=== PATIENT | female | born 1945 | race Caucasian/White ===

== ENCOUNTER → 2019-08-09 11:19 | Outpatient (BNVA) | payer MEDICARE, OTHER, SELFPAY | PROVIDERS: Family Provider Family Medicine; PCP Family Medicine; Visit Provider Family Medicine | DX: E11.9 Type 2 diabetes mellitus without complications (principal); I10 Essential (primary) hypertension; Z79.4 Long term (current) use of insulin; E78.2 Mixed hyperlipidemia | CPT/HCPCS: 80053; 80061; 83036; 84443; 85025 ==

== ENCOUNTER → 2019-08-27 10:00 | Outpatient (BNVA) | payer MEDICARE, OTHER, SELFPAY | PROVIDERS: Family Provider Family Medicine; PCP Family Medicine; Visit Provider Family Medicine | DX: E03.9 Hypothyroidism, unspecified (principal) | CPT/HCPCS: 84439; 84443 ==

== ENCOUNTER 2019-08-30 13:15 | Outpatient (CLI) | payer MEDICARE, OTHER, SELFPAY ==
--- NOTE | 2019-08-30 13:35 | XR_ITS ---
WS: [id number] SACRUM AND COCCYX TECHNIQUE: AP angled and lateral views. HISTORY: pain, fall. COMPARISON: None available. No fracture or malalignment. Visualized bony structures are unremarkable. No soft tissue abnormality. XR/XR sacrum coccyx min 2V [id number] IMPRESSION: Negative sacrum and coccyx.
== END 2019-08-30 13:16 | disposition home or self-care (01) ==
LOC: RADWPI 13:25
PROVIDERS: Family Provider Family Medicine; PCP Family Medicine; Visit Provider Family Medicine
DX: M53.3 Sacrococcygeal disorders, not elsewhere classified (principal); W19.XXXA Unspecified fall, initial encounter
CPT/HCPCS: 72220

== ENCOUNTER → 2019-11-14 14:20 | Outpatient (BNVA) | payer MEDICARE, OTHER, SELFPAY | PROVIDERS: Family Provider Family Medicine; PCP Family Medicine; Visit Provider Nurse Practitioner Family | DX: R50.9 Fever, unspecified (principal); R53.81 Other malaise; R53.83 Other fatigue; J06.9 Acute upper respiratory infection, unspecified; Z20.828 Contact with and (suspected) exposure to other viral communicable diseases | CPT/HCPCS: 87635 ==

== ENCOUNTER 2019-11-20 15:10 | Observation (INO) | payer MEDICARE, OTHER, SELFPAY ==
[2019-11-20] VITALS (7 sets, daily range): BP systolic 121–214; BP diastolic 64–101; PULSE 65–79; RESP 14–20; TEMP 36.8–36.9; O2SAT 92–99; BMI 34.9
--- NOTE | 2019-11-20 15:43 | ECG_ITS ---
[facility] Test Date: 2019-11-20 Pat Name: Dee Solares Department: Room: Gender: Female Educational Audiologist: : 1945 Requested By: Yenni Bustillo Order Number: [id number] Jennifer MD: Renate Mckeon M.D. Measurements Intervals [place] Rate: 68 P: 58 NE: 193 QRS: 25 QRSD: 90 T: 44 QT: 423 QTc: 452 Interpretive Statements SINUS RHYTHM WITH MARKED SINUS ARRHYTHMIA No previous ECG available for comparison Electronically Signed On 11-20-2019 17:28:32 CDT by Renate Mckeon M.D. [id number] f
--- NOTE | 2019-11-20 15:43 | ED_ITS ---
HPI - General Adult General: Chief complaint: General Medical Stated complaint: WEAK, COVID POSITIVE 11-14 Time Seen by Provider: 11/20/19 15:14 History of Present Illness: HPI narrative: This patient is a 74-year-old female who presents today with known COVID. She became symptomatic around November 11. Her first symptoms were headache and fever as well as a very persistent cough. She was tested here on November 13 and received a positive result on the . She has been isolating at home. Her was admitted yesterday with COVID. Also a number of her friends are also ill or admitted with COVID. She says that she has been doing okay other than feeling poorly with the cough, fever, headaches. She was trying to take care of her sick until yesterday and so had not gotten a lot of rest. Today she started having copious amounts of diarrhea and became lightheaded and near syncopal. After she almost passed out and was feeling extremely short of breath she decided to call the ambulance. She is feeling very weak and was afraid that she might pass out at home and no one would find her. She is tachypneic and subjectively short of breath. Her O2 sat on room air just laying in the bed was 94 to 95%. She subjectively felt better with 2 L of nasal cannula oxygen. She is a diabetic and also has a history of mitral valve regurgitation. Her PCP is Dr. Alarcon in [place] and she sees Dr. Marie for her heart. Associated symptoms: Reports dyspnea, headache(s), malaise and nausea; Deny chest pain, rash or vomiting Review of Systems General: Reports: 10 or more systems reviewed and unremarkable except in HPI and below Const: Reports: fever(s), chills, fatigue and malaise Eyes: Denies: change in vision ENMT: Denies: odynophagia Card: Reports: pre-syncope and dyspnea on exertion; Denies: chest pain or swelling of feet/ankles Resp: Reports: dyspnea and non-productive cough; Denies: productive cough GI: Reports: nausea and diarrhea; Denies: abdominal pain or vomiting : Denies: flank pain or difficulty voiding Musc: Reports: back pain; Denies: neck pain Skin/Breast: Denies: rash Neuro: Reports: headache(s), difficulty walking and dizziness; Denies: numbness in extremities or weakness in extremities Bang/Lymph: Denies: easy bruising or easy bleeding PFSH ED PFSH: Medical History (Updated 11/21/19 @ 07:59 by Dony Alvarado MD) Atypical chest pain Benign essential HTN Deafness in left ear Depression Dyslipidemia Fibromyalgia GERD (gastroesophageal reflux disease) Hyperlipidemia Hypertension Intracranial tumor Mitral regurgitation Osteoarthritis Surgical History (Updated 11/21/19 @ 07:54 by Dony Alvarado MD) Previous back surgery Family History (Updated 11/21/19 @ 07:56 by Dony Alvarado MD) Mother Cancer Colon cancer, involving appendix Father CAD (coronary artery disease) Sister Cancer Colon cancer Brother Cancer Colon cancer Other No family history of disorders Social History Smoking and tobacco status: former smoker Quit status (tobacco): has quit using tobacco Year quit tobacco: 1996 Alcohol intake: never Physical Exam Const: COMMON NORMALS: patient oriented x3, no limitations and alert GENERAL APPEARANCE: cooperative HENMT: HEAD & SCALP: normal to inspection FACE & SINUS: normal facial exam Eye: GENERAL EYE: appearance normal, both eyes and all related structures Neck/C-Spine: COMMON NORMALS: supple, no meningeal signs and no JVD Chest: COMMONS NORMALS: normal inspection of the chest Resp: COMMON NORMALS: clear to auscultation bilaterally EFFORT & INSPECTION: Yes tachypneic AUSCULTATION: clear to auscultation bilaterally Cardio: COMMON NORMALS: no JVD, regular rate, regular rhythm and No murmurs present (Cardio) RATE: regular rate RHYTHM: regular rhythm GI: COMMON NORMALS: Normal to inspection, nondistended, normoactive bowel sounds present, Soft to palpation and non-tender INSPECTION: Yes normal to inspection AUSCULTATION: Yes normoactive bowel sounds PALPATION: Yes Soft to palpation Back/Pelvis: COMMON NORMALS: thoracic and lumbar spine normal to inspection Extremity: COMMON NORMALS: normal to inspection Neuro: COMMON NORMALS: patient oriented x3, moves all extremities, no focal motor deficits and no sensory deficits noted SENSORIUM/ORIENTATION: Yes alert MENINGEAL SIGNS: Yes no meningeal signs Psych: COMMON NORMALS: mental status grossly normal, cooperative and normal affect Skin: COMMON NORMALS: no rashes or lesions noted and turgor normal GENERAL SKIN EXAM: no rashes or lesions noted and turgor normal Course Vital Signs: Vital signs: Vital Signs Temperature 98.7 F 11/21/19 11:10 Pulse Rate 73 11/21/19 11:10 Respiratory Rate 22 H 11/21/19 11:10 Blood Pressure 130/64 11/21/19 11:10 Pulse Oximetry 93 11/21/19 11:10 MDM - General Adult MDM Narrative: Medical decision making narrative: COVID positive. On approximately day 9 of illness. She has comorbidities of diabetes and mitral regurgitation. She is elderly and lives alone. She has had worsening of her symptoms in the past day. Her O2 sat resting on room air was 94 to 95%. Subjectively better on oxygen. Work-up with inflammatory markers, chest x-ray. Likely should be admitted given her comorbidities and symptomatic presentation. Lab Data: Labs: Lab Results 11/20/19 11/20/19 11/20/19 Range/Units 16:19 16:19 16:19 WBC 4.1 (4.0-10.0) 10^3/ uL RBC 4.10 (4.1-5.3) 10^6/u L Hgb 11.7 (11.5-15.3) g/dL Hct 38.1 (37.0-47.0) % MCV 92.9 (81-99) fL MCH 28.5 (28.0-34.0) pg MCHC 30.7 (30.0-36.0) g/dL RDW 13.2 (12.1-15.1) % Plt Count 264 (130-400) 10^3/c mm MPV 9.6 (7.4-10.4) fL Neut % (Auto) 66.5 % Lymph % (Auto) 24.8 % Archer % (Auto) 7.8 % Eos % (Auto) 0.2 % Baso % (Auto) 0.5 % Neut # (Auto) 2.71 (1.8-7.7) 10^3/u L Lymph # (Auto) 1.0 (0.8-4.8) 10^3/u L Archer # (Auto) 0.3 (0.2-0.9) 10^3/u L Eos # (Auto) 0.0 (0.0-0.8) 10^3/u L Baso # (Auto) 0.0 (0.0-0.1) 10^3/u L Nucleated RBC % (a uto) 0 % Nucleated RBCs # 0.0 /100WBC PT 13.30 (12.1-14.9) SECO NDS INR 0.98 (0.8-1.2) Fibrinogen 346 (174-498) mg/dL D-Dimer 0.34 (0-0.59) ug/mIFE U Sodium 144 (136-145) mmol/L Potassium 4.2 (3.5-5.1) mmol/L Chloride 107 (98-107) mmol/L Carbon Dioxide 24 (22-29) mmol/L Anion Gap 17.2 (5-19) BUN 15 (8-23) mg/dL Creatinine 0.8 (0.5-0.9) mg/dL GFR Calculation Not Reportable Glucose 107 (65-115) mg/dL Calculated Osmolal ity 295 (285-295) mOsm/k g Lactic Acid (0.5-2.2) mmol/L Calcium 8.8 (8.5-10.5) mg/dL Ferritin 133 (15-150) ng/mL Total Bilirubin 0.2 (0.15-1.2) mg/dL AST 35 H (0-32) U/L ALT 33 (0-33) U/L Alkaline Phosphata se 67 (35-105) IU/L Lactate Dehydrogen ase 167 (135-214) U/L Troponin T Gen 5 n g/L (0-10) ng/L C-Reactive Protein 8.7 H (0.0-4.9) mg/L Total Protein 6.9 (6.6-8.7) g/dL Albumin 3.9 (3.5-5.2) g/dL Globulin 3.0 (1.3-4.6) g/dL Procalcitonin 0.04 (0-0.5) ng/mL 11/20/19 11/20/19 Range/Units 16:19 16:19 WBC (4.0-10.0) 10^3/ uL RBC (4.1-5.3) 10^6/u L Hgb (11.5-15.3) g/dL Hct (37.0-47.0) % MCV (81-99) fL MCH (28.0-34.0) pg MCHC (30.0-36.0) g/dL RDW (12.1-15.1) % Plt Count (130-400) 10^3/c mm MPV (7.4-10.4) fL Neut % (Auto) % Lymph % (Auto) % Archer % (Auto) % Eos % (Auto) % Baso % (Auto) % Neut # (Auto) (1.8-7.7) 10^3/u L Lymph # (Auto) (0.8-4.8) 10^3/u L Archer # (Auto) (0.2-0.9) 10^3/u L Eos # (Auto) (0.0-0.8) 10^3/u L Baso # (Auto) (0.0-0.1) 10^3/u L Nucleated RBC % (a uto) % Nucleated RBCs # /100WBC PT (12.1-14.9) SECO NDS INR (0.8-1.2) Fibrinogen (174-498) mg/dL D-Dimer (0-0.59) ug/mIFE U Sodium (136-145) mmol/L Potassium (3.5-5.1) mmol/L Chloride (98-107) mmol/L Carbon Dioxide (22-29) mmol/L Anion Gap (5-19) BUN (8-23) mg/dL Creatinine (0.5-0.9) mg/dL GFR Calculation Glucose (65-115) mg/dL Calculated Osmolal ity (285-295) mOsm/k g Lactic Acid 1.7 (0.5-2.2) mmol/L Calcium (8.5-10.5) mg/dL Ferritin (15-150) ng/mL Total Bilirubin (0.15-1.2) mg/dL AST (0-32) U/L ALT (0-33) U/L Alkaline Phosphata se (35-105) IU/L Lactate Dehydrogen ase (135-214) U/L Troponin T Gen 5 n g/L 9 (0-10) ng/L C-Reactive Protein (0.0-4.9) mg/L Total Protein (6.6-8.7) g/dL Albumin (3.5-5.2) g/dL Globulin (1.3-4.6) g/dL Procalcitonin (0-0.5) ng/mL Discharge Plan Discharge Admit Provider: Dony Alvarado Condition: Stable Discharge Orders: Discharge Order (Routine); Ordered 11/21/19 Ordered By: Dony Alvarado Discharge Diet: Advance as tolerated Discharge Activity: Increase activity as tolerated Discharge Date/Time: 11/20/19 22:16 Coding Level of Care Code ED Coronary Care Unit Nurse for Chg Fwd Exam Comprehensive
--- NOTE | 2019-11-20 15:43 | XRR_ITS ---
PROCEDURE INFORMATION: Exam: XR Chest, 1 View Exam date and time: 11/20/2019 3:46 PM Age: 74 years old Clinical indication: Condition or disease; Lung condition and disease; Other: Covid; Dyspnea; Additional info: Covid, dyspnea TECHNIQUE: Imaging protocol: XR of the chest Views: 1 view. COMPARISON: No relevant prior studies available. FINDINGS: Lungs: There is interstitial prominence compatible with fibrosis, bronchitis, viral pneumonitis or mild interstitial edema. There is some mild ground-glass opacity in the periphery of the right upper lobe that may reflect asymmetrically increased fibrosis, mild pneumonitis or mild airspace edema. There is no dense lobar consolidation. Pleural space: Unremarkable. No pleural effusion. No pneumothorax. Heart/Mediastinum: The heart is enlarged. Bones/joints: No acute abnormality. XR/XR chest 1V portable [id number] IMPRESSION: There is interstitial prominence compatible with fibrosis, bronchitis, viral pneumonitis or mild interstitial edema.
[2019-11-20 16:27] LABS: Basophils % 0.5 %; Eosinophils % 0.2 %; Hematocrit 38.1 % (37.0-47.0); Hemoglobin 11.7 g/dL (11.5-15.3); Lymphocytes % 24.8 %; Mean Corpuscular HGB Conc 30.7 g/dL (30.0-36.0); Mean Corpuscular Hemoglobin 28.5 pg (28.0-34.0); Mean Corpuscular Volume 92.9 fL (81-99); Mean Platelet Volume 9.6 fL (7.4-10.4); Monocytes # 0.3 10^3/uL (0.2-0.9); Monocytes % 7.8 %; Neutrophils # 2.71 10^3/uL (1.8-7.7); Neutrophils % 66.5 %; Nucleated Red Blood Cells % 0 %; Platelet Count 264 10^3/cmm (130-400); Red Cell Distribution Width 13.2 % (12.1-15.1); White Blood Count 4.1 10^3/uL (4.0-10.0)
[2019-11-20 16:44] LABS: Alanine Aminotransferase 33 U/L (0-33); Albumin Level 3.9 g/dL (3.5-5.2); Alkaline Phosphatase 67 IU/L (35-105); Anion Gap 17.2 (5-19); Aspartate Amino Transferase 35 U/L (0-32); Blood Urea Nitrogen 15 mg/dL (8-23); Calcium 8.8 mg/dL (8.5-10.5); Carbon Dioxide 24 mmol/L (22-29); Chloride 107 mmol/L (98-107); Glucose 107 mg/dL (65-115); Lactate Dehydrogenase 167 U/L (135-214); Osmolality Calculated 295 mOsm/kg (285-295); Potassium 4.2 mmol/L (3.5-5.1); Sodium 144 mmol/L (136-145); Total Bilirubin 0.2 mg/dL (0.15-1.2); Total Protein 6.9 g/dL (6.6-8.7)
[2019-11-20 16:45] LABS: Lactic Sepsis W/Reflex 1.7 mmol/L (0.5-2.2)
[2019-11-20 16:47] LABS: Troponin T (5th) Once 9 ng/L (0-10)
[2019-11-20] MEDS: dexamethasone 10 mg/mL INJ IVP (17:03)
[2019-11-20] MEDS: enoxaparin 100 mg/mL Syringe SUBCUT (17:03)
[2019-11-20] MEDS: dextrose 5%-sod chloride 0.45% 1,000 ML 150 ML IV (17:03)
[2019-11-20 17:10] LABS: Procalcitonin 0.04 ng/mL (0-0.5)
[2019-11-20 17:27] LABS: Ferritin 133 ng/mL (15-150)
[2019-11-20 17:37] LABS: C Reactive Protein 8.7 mg/L (0.0-4.9)
[2019-11-20 17:51] LABS: INR 0.98 (0.8-1.2)
[2019-11-20 17:52] LABS: D Dimer 0.34 ug/mIFEU (0-0.59); Fibrinogen 346 mg/dL (174-498)
--- NOTE | 2019-11-20 21:39 | PC.NURSE ---
Received report from Tai ACOSTA in the ER. Awaiting transfer of patient to [place] [id number].
--- NOTE | 2019-11-20 23:00 | PC.NURSE ---
Patient brought to [id number] via stretcher from ER. Patient placed on stretcher in room. Oriented to room. Call light given to patient.
[2019-11-21] VITALS (18 sets, daily range): BP systolic 130–218; BP diastolic 64–112; PULSE 64–77; RESP 17–22; TEMP 36.7–37.1; O2SAT 90–98
[2019-11-21] MEDS: dextrose 5%-sod chloride 0.45% 1,000 ML 150 ML IV (04:41)
[2019-11-21] MEDS: HYDROcodone-acetaminophen 5-325 mg Tablet 1 TAB PO (04:43)
[2019-11-21] MEDS: gabapentin 300 mg Capsule PO (04:44)
[2019-11-21 05:41] LABS: Hematocrit 38.2 % (37.0-47.0); Hemoglobin 12.1 g/dL (11.5-15.3); Lymphocytes % 30.5 %; Mean Corpuscular HGB Conc 31.7 g/dL (30.0-36.0); Mean Corpuscular Hemoglobin 28.9 pg (28.0-34.0); Mean Corpuscular Volume 91.4 fL (81-99); Mean Platelet Volume 10.7 fL (7.4-10.4); Monocytes # 0.2 10^3/uL (0.2-0.9); Monocytes % 6.6 %; Neutrophils # 1.97 10^3/uL (1.8-7.7); Nucleated Red Blood Cells % 0 %; Platelet Count 267 10^3/cmm (130-400); Red Blood Count 4.18 10^6/uL (4.1-5.3); White Blood Count 3.2 10^3/uL (4.0-10.0)
[2019-11-21 06:10] LABS: Anion Gap 13.6 (5-19); Blood Urea Nitrogen 14 mg/dL (8-23); C Reactive Protein 8.5 mg/L (0.0-4.9); Calcium 9.5 mg/dL (8.5-10.5); Carbon Dioxide 23 mmol/L (22-29); Chloride 107 mmol/L (98-107); Glucose 135 mg/dL (65-115); Osmolality Calculated 288 mOsm/kg (285-295); Potassium 3.6 mmol/L (3.5-5.1); Sodium 140 mmol/L (136-145)
[2019-11-21 06:13] LABS: Slide Review Slide Review Perform
--- NOTE | 2019-11-21 07:47 | PM.SDS ---
Short Stay Summary Providers Date of Admit/Discharge: 11/21/19 Attending Provider: Dony Alvarado MD Primary Care Provider: Karie Alarcon MD Chief Complaint: WEAK, COVID POSITIVE 08- HPI History of Present Illness Dee Solares is a 74 year old female with recently diagnosed COVID-19 presented with acute diarrhea and lightheadedness. Her is currently hospitalized. She was seen this morning and denies shortness of breath or chest pain. Denies cough or difficulty with urination. Reports having significantly elevated blood pressure for which Dr. Marie increased her Irbesartan from 150 mg to 300 mg daily. She also takes Lasix twice daily which likely contributed to patient's low blood pressure, in the 80s on presentation. She was hydrated overnight and this morning reports feeling much better and strong enough to be dismissed home. Denies nausea and has good appetite. Review of Systems Const: Denies: fever(s) or chills Eyes: Denies: change in vision ENMT: Denies: throat pain or change in hearing (Patient is deaf in the left ear because of intracranial tumor) Card: Denies: chest pain, edema (Reports that for the last 2 days she had no lower extremity swelling and had dry mouth) or lightheadedness Resp: Denies: dyspnea or productive cough GI: Reports: diarrhea; Denies: abdominal pain, nausea, vomiting, dysphagia, constipation, hematochezia or melena : Denies: difficulty voiding Musc: Denies: joint pain (Except chronic back pain) or joint swelling Skin/Breast: Denies: rash or erythema Neuro: Denies: headache(s) or weakness in extremities Psych: Denies: depression or suicidal ideation Endo: Denies: excessive sweating Bang/Lymph: Denies: easy bleeding or tender lymph nodes All/Imm: Denies: throat swelling Home Meds/Allergies Home Medications and Allergies Home Medications Medication Instructions Recorded Confirmed Type atorvastatin 40 mg PO DAILY 11/20/19 11/20/19 History biotin 1 cap PO DAILY 11/20/19 11/20/19 History cetirizine 10 mg PO DAILY 11/20/19 11/20/19 History cholecalciferol (vitamin D3) 50 mcg PO DAILY 11/20/19 11/20/19 History [Vitamin D3] fenofibrate 160 mg PO DAILY 08/25/20 08/25/20 History furosemide 20 mg PO DAILY 11/20/19 11/20/19 History isosorbide mononitrate 60 mg PO DAILY 11/20/19 11/20/19 History potassium chloride 20 meq PO BID 11/20/19 11/20/19 History vitamin Q98-azbrp acid 1 tab PO DAILY 11/20/19 11/20/19 History Allergies Allergy/AdvReac Type Severity Reaction Status Date / Time meperidine [From Demerol] Allergy Unknown Verified 11/20/19 17:33 nalbuphine [From Nubain] Allergy Unknown Verified 11/20/19 17:33 niacin Allergy Unknown Verified 11/20/19 17:33 PFSH Acute PFSH: Medical History (Updated 11/21/19 @ 07:59 by Dony Alvarado MD) Atypical chest pain Benign essential HTN Deafness in left ear Depression Dyslipidemia Fibromyalgia GERD (gastroesophageal reflux disease) Hyperlipidemia Hypertension Intracranial tumor Mitral regurgitation Osteoarthritis Surgical History (Updated 11/21/19 @ 07:54 by Dony Alvarado MD) Previous back surgery Family History (Updated 11/21/19 @ 07:56 by Dony Alvarado MD) Mother Cancer Colon cancer, involving appendix Father CAD (coronary artery disease) Sister Cancer Colon cancer Brother Cancer Colon cancer Other No family history of disorders Social History Smoking and tobacco status: former smoker Quit status (tobacco): has quit using tobacco Year quit tobacco: 1996 Alcohol intake: never Vitals/I&O/Wt Last Vital Signs Temp 98.1 F 11/21/19 02:15 Pulse 64 11/21/19 07:00 Resp 17 11/21/19 07:00 BP 200/88 11/21/19 07:00 Pulse Ox 92 11/21/19 07:00 11/20/19 11/21/19 11/21/19 22:59 06:59 14:59 Intake Total 1000 / 1000 300 / 1300 Output Total 500 / 500 Balance 1000 / 1000 -200 / 800 Weight last 48 hrs Weight 104.326 kg Physical Exam Const: COMMON NORMALS: no acute distress, patient oriented x3 and alert HENMT: COMMON NORMALS: normocephalic and atraumatic HEAD & SCALP: normocephalic and atraumatic Eye: COMMON NORMALS: EOMs intact bilaterally, conjunctivae normal and no scleral icterus CONJUNCTIVA: Yes conjunctivae normal Neck/C-Spine: COMMON NORMALS: no lymphadenopathy and no meningeal signs Lymph: LYMPHATIC: no lymphadenopathy noted Chest: COMMONS NORMALS: normal palpation of entire chest wall Resp: COMMON NORMALS: No use of accessory muscles and clear to auscultation bilaterally AUSCULTATION: clear to auscultation bilaterally Cardio: COMMON NORMALS: regular rate, regular rhythm and No murmurs present (Cardio) RATE: regular rate RHYTHM: regular rhythm OTHER: No lower extremity edema GI: COMMON NORMALS: Soft to palpation and non-tender PALPATION: Yes Soft to palpation RECTAL EXAM: deferred : COMMON NORMALS: Yes no CVA tenderness BLADDER/KIDNEY EXAM: Yes no CVA tenderness Back/Pelvis: COMMON NORMALS: no CVA tenderness and thoracic and lumbar spine normal to inspection Extremity: COMMON NORMALS: normal to inspection and capillary refill normal Neuro: COMMON NORMALS: patient oriented x3 and no focal motor deficits SENSORIUM/ORIENTATION: Yes alert MENINGEAL SIGNS: Yes no meningeal signs Psych: COMMON NORMALS: mental status grossly normal, Normal thought process present and cooperative THOUGHT PROCESS: Normal thought process present Skin: COMMON NORMALS: no rashes or lesions noted GENERAL SKIN EXAM: no rashes or lesions noted Hospital Course Admission Diagnoses: Same as discharge diagnosis. Hospital Course: Patient was placed in observation and hydrated with IV fluids. She improved clinically and feels strong enough to be dismissed home. She had no more diarrhea and was able to keep down sandwich yesterday evening and this morning. Urinated without difficulty. Her blood pressure is high which she reports being the case at home. We have discussed for patient to continue with her home dose of it irbesartan 150 mg for a day or 2 and if she has no more diarrhea she can increase dose as recommended by Dr. Marie for better blood pressure control. We also discussed for patient to hold Lasix and potassium for day or 2 to avoid dehydration. Patient appears to have pretty resistant hypertension and may benefit from antiplatelet medication. Reports that she does not take aspirin because of history of peptic ulcer disease. Discharge Summary: Please see above. SSS Data Data Completed and Pending: Completed Studies During Hospitalization Category Date Time Status XR chest 1V britt ble [id number] Stat Exams 11/20/19 15:43 Completed Pending at discharge Category Date Time Status Blood Culture Sta t Lab 11/20/19 16:19 Results Diagnoses at Discharge Discharge Diagnosis (1) Acute diarrhea: Status: Acute Problem details: Likely secondary to gastroenteritis. Possibly related COVID-19 (2) Hypotension: Status: Acute Problem details: This appears to be multifactorial with diarrhea, increased ALYSSA inhibitor dose and Lasix playing a role. (3) Diabetes mellitus: Status: Acute Qualifiers: Diabetes mellitus complication status: with hyperglycemia Diabetes mellitus rat exterminator insulin use: without rat exterminator use Diabetes mellitus type: type 2 Qualified Code(s): E11.65 - Type 2 diabetes mellitus with hyperglycemia (4) Benign essential HTN: Status: Acute Discharge Plan Discharge Patient Disposition: Home Condition: Stable Prescriptions: Continued carvedilol 12.5 mg tablet 12.5 mg PO Q12H Qty: 180 RF: 1 irbesartan 150 mg tablet 150 mg PO DAILY Qty: 90 RF: 1 fluoxetine 10 mg capsule 10 mg PO DAILY Qty: 90 RF: 1 gabapentin 300 mg capsule See Rx Instructions .ROUTE .COMPLEX Qty: 180 RF: 5 irbesartan 300 mg tablet 300 mg PO DAILY Qty: 90 RF: 3 metformin 500 mg tablet See Rx Instructions .ROUTE .COMPLEX Qty: 360 RF: 3 Vitamin D3 50 mcg (2,000 unit) Capsule 50 mcg PO DAILY RF: 0 vitamin B06-lskou acid 500-400 mcg Tablet 1 tab PO DAILY RF: 0 biotin 1 cap PO DAILY RF: 0 atorvastatin 40 mg tablet 40 mg PO DAILY RF: 0 cetirizine 10 mg tablet 10 mg PO DAILY RF: 0 isosorbide mononitrate 60 mg tablet extended release 24 hr 60 mg PO DAILY RF: 0 potassium chloride 20 mEq tablet,ER particles/crystals 20 meq PO BID RF: 0 furosemide 20 mg tablet 20 mg PO DAILY RF: 0 fenofibrate 160 mg tablet 160 mg PO DAILY RF: 0 Discharge Orders: Discharge Order (Routine); Ordered 11/21/19 Ordered By: Dony Alvarado Referrals: Karie Alarcon MD [Primary Care Provider] - 4-7 days Discharge Diet: Advance as tolerated Discharge Activity: Increase activity as tolerated Activity Restrictions/Additional Instructions: Please call your doctor or present to emergency department if your condition worsens including diarrhea, lightheadedness, fatigue or see blood in your stool or black stool. Please hold Lasix and potassium as we have discussed for a day or 2 until your oral intake completely resolved and diarrhea does not recur. Please also take Irbesartan 150 mg for a day and if blood pressure remains stable increase to 300 mg as was recommended by Dr. Marie. Please discuss with Dr. Marie next visit to consider antiplatelet medications for stroke prevention. Attestations Medical Necessity Statement*: Patient with diarrhea and hypotension placed for an observation and deemed safe to be dismissed today. Time Spent in Patient Care*: greater than 30 min Quality Metrics Clinical Quality Measures: During this hospital stay, did patient experience: None Coding Level of Care Code Acute Manager Office for g Fwd Exam Comprehensive Diagnoses Acute diarrhea R19.7 Hypotension I95.9 Diabetes mellitus E11.65 Diabetes mellitus complication status: with hyperglycemia Diabetes mellitus [facility] insulin use: without [facility] use Diabetes mellitus type: type 2 Benign essential HTN I10
[2019-11-21] MEDS: isosorbide mononitrate ER 60 mg Tablet PO (08:19)
[2019-11-21] MEDS: fluoxetine 10 mg Capsule PO (08:19)
[2019-11-21] MEDS: FUROsemide 20 mg Tablet PO (08:19)
[2019-11-21] MEDS: cetirizine 10 mg Tablet PO (08:19)
[2019-11-21] MEDS: losartan 50 mg Tablet 100 MG PO (08:19)
--- NOTE | 2019-11-21 11:57 | PC.NURSE ---
discharge went over discharge instructions with patient, including medications, appointments, and COVID precautions.
--- NOTE | 2019-11-21 14:22 | PC.NURSE ---
patient wheeled to private vehicle, mask on, belongings with patient.
--- NOTE | 2019-11-22 15:58 | PC.SOCIAL ---
Nava from [place] called by this nurse to follow up on message left by Randi in [place]. Blood Culture one out of two on one set showing gram + rods. One of another set showing gram + cocci in pairs in chains. Discussed all results with Dr Alvarado. Dr Alvarado indicates that this is more than likely a contaminant. Dr Alvarado asked me to call the patient and check on her. This nurse called to check on the patient and patient indicates she is not feeling worse but wanting to get over the COVID. This nurse discussed the Blood Culture results with patient and Dr Alvarado response that results are likely result of contaminant. Patient is not having any N/V and has been afebrile. She verbalized if she starts feeling worse she will come to the Emergency Dept for evaluation. Emailed Dr Alarcon her primary care after verifying primary care with patient and included the results as an attachment. Requested read receipt as well. No further orders given by Dr Alvarado.
== END 2019-11-21 14:10 | disposition home or self-care (01) ==
LOC: ER 15:34 → ICU 11-21 08:11
PROVIDERS: Internal Medicine; Admitting Provider Internal Medicine; Emergency Provider Emergency Medicine; PCP Family Medicine; Visit Provider Internal Medicine
DX: R19.7 Diarrhea, unspecified (principal); I95.9 Hypotension, unspecified; E11.65 Type 2 diabetes mellitus with hyperglycemia; U07.1 COVID-19; I10 Essential (primary) hypertension; E78.5 Hyperlipidemia, unspecified; M79.7 Fibromyalgia; K21.9 Gastro-esophageal reflux disease without esophagitis; I34.0 Nonrheumatic mitral (valve) insufficiency; M19.90 Unspecified osteoarthritis, unspecified site; Z87.891 Personal history of nicotine dependence
CPT/HCPCS: 12345; 36415; 71045; 80048; 80053; 82728; 83605; 83615; 84145; 84484; 85025; 85378; 85384; 85610; 86140; 87040; 87077; 87186; 87205; 93005; 96360; 96361; 96372; 99283; G0378; J1100; J1650; J7799

== ENCOUNTER 2019-11-23 22:52 | Inpatient (IN) | payer MEDICARE, OTHER, SELFPAY ==
[2019-11-23 22:55] VITALS: BP 195/88; PULSE 68; RESP 24; TEMP 37.2; O2SAT 96; BMI 33.4
--- NOTE | 2019-11-23 22:56 | W.ED.NAVMDI ---
Documented by User: SAUL Wilson 11/24/19 01:24 HPI - Nausea/Vomiting/Diarrhea General: Chief complaint: Shortness of Breath/Dyspnea Stated complaint: DAIRRHEA Time Seen by Provider: 11/23/19 22:56 Source: patient Mode of arrival: ambulatory Limitations: no limitations History of Present Illness: HPI Narrative: Patient comes in today with complaints of diarrhea and weakness. Patient was released on the after rehydration with fluids per IV the night before. Patient states that she was diagnosed with COVID on 13 of November and has had mainly diarrhea and some mild shortness of breath. Patient was admitted and discharged on the for diarrhea and lightheadedness. Patient reports that her symptoms have returned and she still feels awful. Patient feels too weak to be at home by herself. Patient spouse is admitted in the hospital with COVID 19 also. MD elicited complaint: diarrhea Review of Systems General: Reports: 10 or more systems reviewed and unremarkable except in HPI and below Const: Reports: other (weakness) GI: Reports: diarrhea PFSH ED PFSH: Medical History (Updated 11/24/19 @ 03:26 by Uri Jean-Baptiste DO) Atypical chest pain Benign essential HTN Deafness in left ear Depression Dyslipidemia Fibromyalgia GERD (gastroesophageal reflux disease) Hyperlipidemia Hypertension Intracranial tumor Mitral regurgitation Osteoarthritis Surgical History (Updated 11/21/19 @ 07:54 by Dony Alvarado MD) Previous back surgery Family History (Updated 11/21/19 @ 07:56 by Dony Alvarado MD) Mother Cancer Colon cancer, involving appendix Father CAD (coronary artery disease) Sister Cancer Colon cancer Brother Cancer Colon cancer Other No family history of disorders Social History Smoking and tobacco status: former smoker Quit status (tobacco): has quit using tobacco Year quit tobacco: 1996 Alcohol intake: never Physical Exam Const: COMMON NORMALS: no acute distress and patient oriented x3 GENERAL APPEARANCE: cooperative HENMT: COMMON NORMALS: normocephalic and Normal external nose present HEAD & SCALP: normal to inspection and normocephalic NOSE: Normal external nose present MOUTH: Normal oral and palatal mucosa present THROAT: posterior oropharynx normal Eye: GENERAL EYE: appearance normal, both eyes and all related structures Neck/C-Spine: COMMON NORMALS: full ROM Lymph: LYMPHATIC: no lymphadenopathy noted Chest: COMMONS NORMALS: normal inspection of the chest Resp: COMMON NORMALS: normal respiratory effort EFFORT & INSPECTION: Yes able to speak in complete sentences Cardio: COMMON NORMALS: regular rate and regular rhythm RATE: regular rate RHYTHM: regular rhythm GI: COMMON NORMALS: Soft to palpation and non-tender PALPATION: Yes Soft to palpation Back/Pelvis: COMMON NORMALS: thoracic and lumbar spine normal to inspection Extremity: COMMON NORMALS: normal to inspection Neuro: COMMON NORMALS: patient oriented x3 and moves all extremities Psych: COMMON NORMALS: mental status grossly normal and cooperative Skin: COMMON NORMALS: no rashes or lesions noted GENERAL SKIN EXAM: no rashes or lesions noted Course ED course: 0120, reviewed labs with patient and chest x-ray. Labs noted some low potassium but otherwise unremarkable. Chest x-ray notes no significant difference from previous x-ray. Patient states though that she feels worse than she did when she was discharged from the hospital 2 days ago. Patient states that she has been unable to eat due to nausea and when she is been able to eat some she has diarrhea immediately. I reviewed this with Dr. Jean-Baptiste, attending physician in the ER, he agreed to talk to the hospitalist regarding further evaluation and possible admission for IV fluids and dietary treatment. Vital Signs: Vital signs: Vital Signs Temperature 98.9 F 11/23/19 22:55 Pulse Rate 65 11/24/19 02:31 Respiratory Rate 18 11/24/19 02:31 Blood Pressure 204/94 11/24/19 02:31 Pulse Oximetry 94 11/24/19 02:31 MDM - Nausea/Vomiting/Diarrhea MDM Narrative: Medical decision making narrative: Patient comes in today for persistent diarrhea for the last 2 weeks after the diagnosis of COVID-19. Patient states increasing weakness. Exam notes good air movement throughout. Patient does have some mild hypoxia that is controlled with 2 L of nasal cannula oxygen. Abdomen soft and nontender. No edema is noted in the extremities. Differential diagnosis includes but not limited to pneumonia, gastroenteritis, deterioration of condition from COVID-19. Reviewed exam with Dr. Jean-Baptiste who agreed to discuss with hospitalist regarding further treatment for patient and her distress. Lab Data: Labs: Lab Results 11/23/19 11/23/19 11/23/19 Range/Units 23:44 23:44 23:44 WBC 7.1 (4.0-10.0) 10^3/ uL RBC 4.36 (4.1-5.3) 10^6/u L Hgb 12.3 (11.5-15.3) g/dL Hct 39.3 (37.0-47.0) % MCV 90.1 (81-99) fL MCH 28.2 (28.0-34.0) pg MCHC 31.3 (30.0-36.0) g/dL RDW 12.8 (12.1-15.1) % Plt Count 284 (130-400) 10^3/c mm MPV 9.6 (7.4-10.4) fL Neut % (Auto) 74.3 % Lymph % (Auto) 17.0 % Wagoner % (Auto) 7.5 % Eos % (Auto) 0.1 % Baso % (Auto) 0.1 % Neut # (Auto) 5.28 (1.8-7.7) 10^3/u L Lymph # (Auto) 1.2 (0.8-4.8) 10^3/u L Wagoner # (Auto) 0.5 (0.2-0.9) 10^3/u L Eos # (Auto) 0.0 (0.0-0.8) 10^3/u L Baso # (Auto) 0.0 (0.0-0.1) 10^3/u L Nucleated RBC % (a uto) 0 % Nucleated RBCs # 0.0 /100WBC Sodium 139 (136-145) mmol/L Potassium 3.2 L (3.5-5.1) mmol/L Chloride 104 (98-107) mmol/L Carbon Dioxide 24 (22-29) mmol/L Anion Gap 14.2 (5-19) BUN 11 (8-23) mg/dL Creatinine 0.7 (0.5-0.9) mg/dL GFR Calculation Not Reportable Glucose 132 H (65-115) mg/dL Calculated Osmolal ity 286 (285-295) mOsm/k g Lactic Acid 1.0 (0.5-2.2) mmol/L Calcium 9.4 (8.5-10.5) mg/dL Magnesium 1.8 (1.7-2.3) mg/dL Total Bilirubin 0.4 (0.15-1.2) mg/dL AST 26 (0-32) U/L ALT 28 (0-33) U/L Alkaline Phosphata se 74 (35-105) IU/L Total Protein 7.6 (6.6-8.7) g/dL Albumin 3.8 (3.5-5.2) g/dL Globulin 3.8 (1.3-4.6) g/dL Urine Color (Yellow) Urine Appearance (CLEAR) Urine pH (5-7) Ur Specific Gravit y (1.005-1.030) Urine Protein (Negative) Urine Glucose (UA) (Normal) Urine Ketones (Negative) Urine Blood (Negative) Urine Nitrate (Negative) Urine Bilirubin (NEGATIVE) Urine Urobilinogen (Negative) mg/dL Ur Leukocyte Tawnya ase (Negative) Urine RBC (0-2) /hpf Urine WBC (0-5) /hpf Ur Squamous Epith Cells (0-5) Amorphous Sediment Urine Bacteria (NONE) Urine Mucus 11/24/19 Range/Units 02:00 WBC (4.0-10.0) 10^3/ uL RBC (4.1-5.3) 10^6/u L Hgb (11.5-15.3) g/dL Hct (37.0-47.0) % MCV (81-99) fL MCH (28.0-34.0) pg MCHC (30.0-36.0) g/dL RDW (12.1-15.1) % Plt Count (130-400) 10^3/c mm MPV (7.4-10.4) fL Neut % (Auto) % Lymph % (Auto) % Wagoner % (Auto) % Eos % (Auto) % Baso % (Auto) % Neut # (Auto) (1.8-7.7) 10^3/u L Lymph # (Auto) (0.8-4.8) 10^3/u L Wagoner # (Auto) (0.2-0.9) 10^3/u L Eos # (Auto) (0.0-0.8) 10^3/u L Baso # (Auto) (0.0-0.1) 10^3/u L Nucleated RBC % (a uto) % Nucleated RBCs # /100WBC Sodium (136-145) mmol/L Potassium (3.5-5.1) mmol/L Chloride (98-107) mmol/L Carbon Dioxide (22-29) mmol/L Anion Gap (5-19) BUN (8-23) mg/dL Creatinine (0.5-0.9) mg/dL GFR Calculation Glucose (65-115) mg/dL Calculated Osmolal ity (285-295) mOsm/k g Lactic Acid (0.5-2.2) mmol/L Calcium (8.5-10.5) mg/dL Magnesium (1.7-2.3) mg/dL Total Bilirubin (0.15-1.2) mg/dL AST (0-32) U/L ALT (0-33) U/L Alkaline Phosphata se (35-105) IU/L Total Protein (6.6-8.7) g/dL Albumin (3.5-5.2) g/dL Globulin (1.3-4.6) g/dL Urine Color Yellow (Yellow) Urine Appearance Sl hazy (CLEAR) Urine pH 6 (5-7) Ur Specific Gravit y 1.010 (1.005-1.030) Urine Protein Trace (Negative) Urine Glucose (UA) Norm (Normal) Urine Ketones 1+ H (Negative) Urine Blood Neg (Negative) Urine Nitrate Negative (Negative) Urine Bilirubin Neg (NEGATIVE) Urine Urobilinogen 1 H (Negative) mg/dL Ur Leukocyte Tawnya ase 2+ H (Negative) Urine RBC 0-4 H (0-2) /hpf Urine WBC 5-10 H (0-5) /hpf Ur Squamous Epith Cells 15-25 H (0-5) Amorphous Sediment Not Reportable Urine Bacteria Trace (NONE) Urine Mucus 2+ Discharge Plan Discharge Patient Disposition: Placed in Observation Clinical Impression: COVID-19, Acute diarrhea Clinical Impression: (Ruled Out): Encounter for screening laboratory testing for COVID-19 virus Condition: Stable Referrals: Karie Alarcon MD [Primary Care Provider] - Coding Level of Care Code ED Cloth Desizing Range Tender for Chg Fwd Exam Comprehensive Documented by User: Uri Jean-Baptiste DO 11/24/19 03:26 HPI - Nausea/Vomiting/Diarrhea General: Chief complaint: Shortness of Breath/Dyspnea Stated complaint: DAIRRHEA Time Seen by Provider: 11/23/19 22:56 [facility] ED PFSH: Medical History (Updated 11/24/19 @ 03:26 by Uri Jean-Baptiste DO) Atypical chest pain Benign essential HTN Deafness in left ear Depression Dyslipidemia Fibromyalgia GERD (gastroesophageal reflux disease) Hyperlipidemia Hypertension Intracranial tumor Mitral regurgitation Osteoarthritis Surgical History (Updated 11/21/19 @ 07:54 by Dony Alvarado MD) Previous back surgery Family History (Updated 11/21/19 @ 07:56 by Dony Alvarado MD) Mother Cancer Colon cancer, involving appendix Father CAD (coronary artery disease) Sister Cancer Colon cancer Brother Cancer Colon cancer Other No family history of disorders Social History Smoking and tobacco status: former smoker Quit status (tobacco): has quit using tobacco Year quit tobacco: 1996 Alcohol intake: never Course Vital Signs: Vital signs: Vital Signs Temperature 98.9 F 11/23/19 22:55 Pulse Rate 65 11/24/19 02:31 Respiratory Rate 18 11/24/19 02:31 Blood Pressure 204/94 11/24/19 02:31 Pulse Oximetry 94 11/24/19 02:31 MDM - Nausea/Vomiting/Diarrhea MDM Narrative: Medical decision making narrative: This patient was originally seen and examined by SAUL Chester. I agree with his history, evaluation, and treatment. This patient is a COVID positive patient who has had multiple episodes of diarrhea with increasing weakness today. She had come in 2 days ago for the similar symptoms, and begun to feel better after some fluid resuscitation. She presents after failure to ambulate and complete her ADLs at home due to profound weakness. She is had multiple episodes of diarrhea today. She is complaining of headache, and some shortness of breath. She will be admitted to the viral ICU, as she is on day 10 or so of the illness. Lab Data: Labs: Lab Results 11/23/19 11/23/19 11/23/19 Range/Units 23:44 23:44 23:44 WBC 7.1 (4.0-10.0) 10^3/ uL RBC 4.36 (4.1-5.3) 10^6/u L Hgb 12.3 (11.5-15.3) g/dL Hct 39.3 (37.0-47.0) % MCV 90.1 (81-99) fL MCH 28.2 (28.0-34.0) pg MCHC 31.3 (30.0-36.0) g/dL RDW 12.8 (12.1-15.1) % Plt Count 284 (130-400) 10^3/c mm MPV 9.6 (7.4-10.4) fL Neut % (Auto) 74.3 % Lymph % (Auto) 17.0 % Wagoner % (Auto) 7.5 % Eos % (Auto) 0.1 % Baso % (Auto) 0.1 % Neut # (Auto) 5.28 (1.8-7.7) 10^3/u L Lymph # (Auto) 1.2 (0.8-4.8) 10^3/u L Wagoner # (Auto) 0.5 (0.2-0.9) 10^3/u L Eos # (Auto) 0.0 (0.0-0.8) 10^3/u L Baso # (Auto) 0.0 (0.0-0.1) 10^3/u L Nucleated RBC % (a uto) 0 % Nucleated RBCs # 0.0 /100WBC Sodium 139 (136-145) mmol/L Potassium 3.2 L (3.5-5.1) mmol/L Chloride 104 (98-107) mmol/L Carbon Dioxide 24 (22-29) mmol/L Anion Gap 14.2 (5-19) BUN 11 (8-23) mg/dL Creatinine 0.7 (0.5-0.9) mg/dL GFR Calculation Not Reportable Glucose 132 H (65-115) mg/dL Calculated Osmolal ity 286 (285-295) mOsm/k g Lactic Acid 1.0 (0.5-2.2) mmol/L Calcium 9.4 (8.5-10.5) mg/dL Magnesium 1.8 (1.7-2.3) mg/dL Total Bilirubin 0.4 (0.15-1.2) mg/dL AST 26 (0-32) U/L ALT 28 (0-33) U/L Alkaline Phosphata se 74 (35-105) IU/L Total Protein 7.6 (6.6-8.7) g/dL Albumin 3.8 (3.5-5.2) g/dL Globulin 3.8 (1.3-4.6) g/dL Urine Color (Yellow) Urine Appearance (CLEAR) Urine pH (5-7) Ur Specific Gravit y (1.005-1.030) Urine Protein (Negative) Urine Glucose (UA) (Normal) Urine Ketones (Negative) Urine Blood (Negative) Urine Nitrate (Negative) Urine Bilirubin (NEGATIVE) Urine Urobilinogen (Negative) mg/dL Ur Leukocyte Tawnya ase (Negative) Urine RBC (0-2) /hpf Urine WBC (0-5) /hpf Ur Squamous Epith Cells (0-5) Amorphous Sediment Urine Bacteria (NONE) Urine Mucus 11/24/19 Range/Units 02:00 WBC (4.0-10.0) 10^3/ uL RBC (4.1-5.3) 10^6/u L Hgb (11.5-15.3) g/dL Hct (37.0-47.0) % MCV (81-99) fL MCH (28.0-34.0) pg MCHC (30.0-36.0) g/dL RDW (12.1-15.1) % Plt Count (130-400) 10^3/c mm MPV (7.4-10.4) fL Neut % (Auto) % Lymph % (Auto) % Wagoner % (Auto) % Eos % (Auto) % Baso % (Auto) % Neut # (Auto) (1.8-7.7) 10^3/u L Lymph # (Auto) (0.8-4.8) 10^3/u L Wagoner # (Auto) (0.2-0.9) 10^3/u L Eos # (Auto) (0.0-0.8) 10^3/u L Baso # (Auto) (0.0-0.1) 10^3/u L Nucleated RBC % (a uto) % Nucleated RBCs # /100WBC Sodium (136-145) mmol/L Potassium (3.5-5.1) mmol/L Chloride (98-107) mmol/L Carbon Dioxide (22-29) mmol/L Anion Gap (5-19) BUN (8-23) mg/dL Creatinine (0.5-0.9) mg/dL GFR Calculation Glucose (65-115) mg/dL Calculated Osmolal ity (285-295) mOsm/k g Lactic Acid (0.5-2.2) mmol/L Calcium (8.5-10.5) mg/dL Magnesium (1.7-2.3) mg/dL Total Bilirubin (0.15-1.2) mg/dL AST (0-32) U/L ALT (0-33) U/L Alkaline Phosphata se (35-105) IU/L Total Protein (6.6-8.7) g/dL Albumin (3.5-5.2) g/dL Globulin (1.3-4.6) g/dL Urine Color Yellow (Yellow) Urine Appearance Sl hazy (CLEAR) Urine pH 6 (5-7) Ur Specific Gravit y 1.010 (1.005-1.030) Urine Protein Trace (Negative) Urine Glucose (UA) Norm (Normal) Urine Ketones 1+ H (Negative) Urine Blood Neg (Negative) Urine Nitrate Negative (Negative) Urine Bilirubin Neg (NEGATIVE) Urine Urobilinogen 1 H (Negative) mg/dL Ur Leukocyte Tawnya ase 2+ H (Negative) Urine RBC 0-4 H (0-2) /hpf Urine WBC 5-10 H (0-5) /hpf Ur Squamous Epith Cells 15-25 H (0-5) Amorphous Sediment Not Reportable Urine Bacteria Trace (NONE) Urine Mucus 2+ Discharge Plan Discharge Patient Disposition: Placed in Observation Clinical Impression: COVID-19, Acute diarrhea Clinical Impression: (Ruled Out): Encounter for screening laboratory testing for COVID-19 virus Condition: Stable Referrals: Karie Alarcon MD [Primary Care Provider] - Coding Level of Care Code ED Cloth Desizing Range Tender for g Fwd Exam Comprehensive
[2019-11-23 23:51] LABS: Basophils % 0.1 %; Eosinophils % 0.1 %; Hematocrit 39.3 % (37.0-47.0); Hemoglobin 12.3 g/dL (11.5-15.3); Lymphocytes # 1.2 10^3/uL (0.8-4.8); Mean Corpuscular HGB Conc 31.3 g/dL (30.0-36.0); Mean Corpuscular Hemoglobin 28.2 pg (28.0-34.0); Mean Corpuscular Volume 90.1 fL (81-99); Mean Platelet Volume 9.6 fL (7.4-10.4); Monocytes # 0.5 10^3/uL (0.2-0.9); Monocytes % 7.5 %; Neutrophils # 5.28 10^3/uL (1.8-7.7); Neutrophils % 74.3 %; Nucleated Red Blood Cells % 0 %; Platelet Count 284 10^3/cmm (130-400); Red Blood Count 4.36 10^6/uL (4.1-5.3); Red Cell Distribution Width 12.8 % (12.1-15.1); White Blood Count 7.1 10^3/uL (4.0-10.0)
[2019-11-23] MEDS: lactated ringers 1,000 ML 999 ML IV (23:57)
[2019-11-24] VITALS (210 sets, daily range): BP systolic 123–230; BP diastolic 63–109; PULSE 54–82; RESP 13–28; TEMP 36.3–36.7; O2SAT 87–96
[2019-11-24 00:18] LABS: Alanine Aminotransferase 28 U/L (0-33); Albumin Level 3.8 g/dL (3.5-5.2); Alkaline Phosphatase 74 IU/L (35-105); Anion Gap 14.2 (5-19); Aspartate Amino Transferase 26 U/L (0-32); Blood Urea Nitrogen 11 mg/dL (8-23); Calcium 9.4 mg/dL (8.5-10.5); Carbon Dioxide 24 mmol/L (22-29); Chloride 104 mmol/L (98-107); Creatinine Clr Calc Pharmacy 77.3729; Globulin 3.8 g/dL (1.3-4.6); Glucose 132 mg/dL (65-115); Magnesium 1.8 mg/dL (1.7-2.3); Osmolality Calculated 286 mOsm/kg (285-295); Potassium 3.2 mmol/L (3.5-5.1); Sodium 139 mmol/L (136-145); Total Bilirubin 0.4 mg/dL (0.15-1.2); Total Protein 7.6 g/dL (6.6-8.7)
[2019-11-24] MEDS: ondansetron 2 mg/ML SDV 2 mL 4 MG IVP (00:19)
--- NOTE | 2019-11-24 00:25 | PC.NURSE ---
PATIENT TRIED TO URINATE IN BEDSIDE COMMODE BUT WAS UNABLE TO URINATE AT THIS TIME.
[2019-11-24 00:26] LABS: Slide Review Slide Review Perform
--- NOTE | 2019-11-24 00:30 | XRR_ITS ---
PROCEDURE INFORMATION: Exam: XR Chest, 1 View Exam date and time: 11/24/2019 1:12 AM Age: 74 years old Clinical indication: Dyspnea; Additional info: Covid +, short of breath TECHNIQUE: Imaging protocol: XR of the chest Views: 1 view. COMPARISON: CR XR chest 1V portable [id number] 11/20/2019 3:49 PM FINDINGS: Lungs: Bilateral scattered lung infiltrates are present showing slight improvement. No consolidation. Pleural space: Unremarkable. No pleural effusion. No pneumothorax. Heart/Mediastinum: Unremarkable. No cardiomegaly. Bones/joints: Unremarkable. XR/XR chest 1V portable [id number] IMPRESSION: Bilateral scattered lung infiltrates showing slight improvement.
[2019-11-24] MEDS: potassium chloride ER 10 mEq Tablet PO (01:44)
[2019-11-24 02:30] LABS: Add Urine Microscopic? YES; Bilirubin Urine Neg (NEGATIVE); Blood Urine Neg (Negative); Glucose Urine UA Norm (Normal); Ketones Urine 1+ (Negative); Leukocyte Esterase Urine 2+ (Negative); Nitrate Urine Negative (Negative); Protein Urine Trace (Negative); Urine Appearance SL Hazy (CLEAR); Urine Color Yellow (Yellow); Urobilinogen Urine 1 mg/dL (Negative); pH Urine 6 (5-7)
[2019-11-24 02:32] LABS: Add Urine Culture? No; Bacteria Urine TRACE; Mucus Urine 2+; RBC Urine 0-4 /hpf (0-2); Squamous Epithelial Cell Urine 15-25 (0-5)
--- NOTE | 2019-11-24 03:26 | PM.HP ---
Providers/Chief Complaint Primary Care Provider: Karie Alarcon MD Chief Complaint: DAIRRHEA History of Present Illness Dee Solares is a 74 year old female who contracted SARS COVID-19(antigen +10 days ago), was recently discharged on 11/20 after she was hydrated for her diarrheal symptoms came back today for worsening of her diarrhea and extreme lethargy. Patient is stating that her diarrhea improved a little bit but her symptoms started today after she ate scrambled eggs in the morning, she has been having diarrheal episodes every hour, she is denying vomiting but endorsing abdominal cramps and epigastric region, she is denying dysuria, she also noticed fever 101 at home today. Because of her worsening of symptoms she decided to come to the hospital for further evaluation Diagnosis in the ER revealed normal leukocytosis, no leukopenia identified, potassium 3.2, she is hypertensive, she has not taken her antihypertensive medication at home, glucose 132, she has been resuscitated with Ringer lactate in the ER, urinalysis is contaminated however patient is denying signs of UTI. Currently on 2 L saturating 92%. Review of Systems Const: Reports: fever(s), chills, body aches, change in appetite, fatigue and malaise Eyes: Denies: change in vision ENMT: Denies: throat pain Card: Denies: chest pain Resp: Denies: dyspnea GI: Reports: abdominal pain, nausea and diarrhea; Denies: vomiting : Denies: flank pain Musc: Denies: neck pain Skin/Breast: Denies: rash Neuro: Denies: headache(s) Psych: Reports: anxiety and depression Endo: Denies: polyuria Bang/Lymph: Denies: easy bruising All/Imm: Denies: urticaria Medications/Allergies Home Medications Medication Instructions Recorded Confirmed Last Taken Type carvedilol 12.5 mg tablet 12.5 mg PO Q12H #180 tab 05/14/19 11/20/19 11/20/19 Rx irbesartan 150 mg tablet 150 mg PO DAILY #90 tab 05/14/19 11/20/19 11/20/19 Rx fluoxetine 10 mg capsule 10 mg PO DAILY #90 cap 05/23/19 11/20/19 11/20/19 Rx gabapentin 300 mg capsule See Rx Instructions .ROUTE 08/13/19 11/20/19 11/20/19 Rx .COMPLEX #180 cap irbesartan 300 mg tablet 300 mg PO DAILY #90 tab 11/14/19 11/20/19 Unknown Rx metformin 500 mg tablet See Rx Instructions .ROUTE 11/15/19 11/20/19 11/20/19 Rx .COMPLEX #360 tab Vitamin D3 50 mcg PO DAILY 11/20/19 11/20/19 11/20/19 History atorvastatin 40 mg PO DAILY 11/20/19 11/20/19 11/20/19 History biotin 1 cap PO DAILY 11/20/19 11/20/19 11/20/19 History cetirizine 10 mg PO DAILY 11/20/19 11/20/19 11/20/19 History fenofibrate 160 mg PO DAILY 11/20/19 11/20/19 11/20/19 History furosemide 20 mg PO DAILY 11/20/19 11/20/19 11/20/19 History isosorbide mononitrate 60 mg PO DAILY 11/20/19 11/20/19 11/20/19 History potassium chloride 20 meq PO BID 11/20/19 11/20/19 11/20/19 History vitamin [id number] acid 1 tab PO DAILY 11/20/19 11/20/19 11/20/19 History Allergies Allergy/AdvReac Type Severity Reaction Status Date / Time meperidine [From Demerol] Allergy Unknown Verified 11/23/19 23:01 [id number] [From Nubain] Allergy Unknown Verified 11/23/19 23:01 niacin Allergy Unknown Verified 11/23/19 23:01 PFSH Acute PFSH: Medical History Atypical chest pain Benign essential HTN Deafness in left ear Depression Dyslipidemia Fibromyalgia GERD (gastroesophageal reflux disease) Hyperlipidemia Hypertension Intracranial tumor Mitral regurgitation Osteoarthritis Surgical History Previous back surgery Family History Mother Cancer Colon cancer, involving appendix Father CAD (coronary artery disease) Sister Cancer Colon cancer Brother Cancer Colon cancer Other No family history of disorders Social History Smoking and tobacco status: former smoker Quit status (tobacco): has quit using tobacco Year quit tobacco: 1996 Alcohol intake: never Vitals/I&O/Wt Last Vital Signs Temp 98.9 F 11/23/19 22:55 Pulse 65 11/24/19 02:31 Resp 18 11/24/19 02:31 BP 204/94 11/24/19 02:31 Pulse Ox 94 11/24/19 02:31 11/23/19 11/23/19 11/24/19 14:59 22:59 06:59 Intake Total 1100 / 1100 Balance 1100 / 1100 Weight last 48 hrs Weight 99.79 kg Physical Exam Narrative: EXAM NARRATIVE: Patient is very irritable when I entered the room She was wearing a mask, PPE used to evaluate the patient N95 mask was used Hypertensive Patient very irritable complaining of epigastric cramps and use of mask is bothering her No active respiratory distress saturating 92% on 2 L nasal cannula S1, S2 no tachycardia noted Clinically looks dehydrated Midepigastric tenderness on deep palpation, Neurologically nonfocal deficit Alert oriented x3, GCS 15 Irritable mood Lower extremity no edema gangrene ulcer Data : 11/23/19 23:44 11/23/19 23:44 A&P Assessment and plan (1) COVID-19: Status: Acute (2) Hypertensive urgency: Status: Acute (3) Diarrhea: Status: Acute Additional A&P Information SARS COVID 19+ Currently saturating well on 2 L nasal cannula Was diagnosed 10 days ago Currently complaining of fever, chills, fatigue and lethargy Chest x-ray is pretty much similar to the one she had before no new changes identified Subacute diarrhea with dehydration I would hold her metformin which could cause diarrhea, hold fenofibrate and multivitamin Hold Lasix because of dehydration Continue fluid resuscitation Had mild epigastric tenderness, No signs of sepsis No signs of peritonitis I would use Lomotil once C. difficile is ruled out Hypokalemia secondary to Lasix and dehydration: Repleted Hypertensive urgency: I would start her on irbesartan 150 mg as 300 mg dosage caused hypotension Continue Imdur, holding Lasix for now I will give her 1 dose of hydralazine 10 mg IV and monitor her response Full code Cardiac diet DVT prophylaxis Lovenox Attestations Medical Necessity Statement*: Anticipating discharge in less than 48 hours, continued IV fluid resuscitation and monitoring for hypertensive urgency in the ER Time Spent in Patient Care: (>than 50% of time spent in counselling and/or direct pt care on unit). 40mins Coding Level of Care Code Acute Surface Water Technician for Chg Fwd Diagnoses COVID-19 U07.1 Hypertensive urgency I16.0 Diarrhea R19.7
[2019-11-24] MEDS: hyDRALAzine 20 mg/mL INJ 1 mL 10 MG IVP (05:21)
[2019-11-24] MEDS: sodium chloride 0.9% 1,000 ML 100 ML IV (07:08)
[2019-11-24] MEDS: carvedilol 12.5 mg Tablet PO ×2 (07:58→17:38)
[2019-11-24] MEDS: enoxaparin 40 mg/0.4 mL Syringe SUBCUT (07:59)
[2019-11-24] MEDS: potassium chloride ER 10 mEq Tablet 40 MEQ PO (07:59)
[2019-11-24 08:15] LABS: Glucose Point of Care 102 mg/dL (70-110)
--- NOTE | 2019-11-24 09:42 | USCV_ITS ---
Dee Solares Age: 74 Gender: F : 1945 Exam Date: 11/24/2019 11:29 Ordering Phys: Dony Alvarado MD Technologist: Walker Urena [place] [facility] [place]: ? VEG BP: 161 / 86 HR: 62 Rhythm: Sinus Technical Quality: Fair MEASUREMENTS (Male / Female) Normal Values 2D ECHO LV Diastolic Diameter PLAX 3.9 cm 4.2 - 5.9 / 3.9 - 5.3 cm LV Systolic Diameter PLAX 2.3 cm IVS Diastolic Thickness 1.1 cm 0.6 - 1.0 / 0.6 - 0.9 cm IVS Systolic Thickness 1.5 cm LVPW Diastolic Thickness 1.0 cm 0.6 - 1.0 / 0.6 - 0.9 cm LVPW Systolic Thickness 1.5 cm LVOT Diameter 2.0 cm LV Ejection Fraction 2D Teich 73.0 % LV Ejection Fraction MOD 2C 54.9 % LV Ejection Fraction 2C AL 55.7 % LA Diameter 4.1 cm LA Width 3.0 cm LA Height 3.7 cm RA Width 3.2 cm RA Height 3.8 cm Aorta at Sinotubular Diameter 1.0 cm M-MODE LV Diastolic Diameter MM 4.8 cm 4.2 - 5.9 / 3.9 - 5.3 cm LV Systolic Diameter MM 2.7 cm LV Ejection Fraction MM Teich 75.4 % IVS Diastolic Thickness MM 1.0 cm 0.6 - 1.0 / 0.6 - 0.9 cm IVS Systolic Thickness MM 1.8 cm LVPW Diastolic Thickness MM 1.3 cm 0.6 - 1.0 / 0.6 - 0.9 cm LVPW Systolic Thickness MM 2.0 cm RV Diastolic Diameter MM 2.0 cm Aortic Annulus Diameter 3.4 cm LA Ao Ratio MM 1.2 MV E Point Septal Separation 0.8 cm DOPPLER AV Peak Velocity 204.0 cm/s LVOT Peak Velocity 121.0 cm/s AV Area Cont Eq vti 2.3 cm squared AV Area Cont Eq pk 2.0 cm squared MV Area PHT 4.4 cm squared Mitral E to A Ratio 0.7 MV E' Velocity 5.0 cm/s Mitral E to MV E' Ratio 17.1 Mitral E to LV E' Lateral Ratio 15.5 Mitral E to LV E' Septal Ratio 19.0 TR Peak Velocity 309.0 cm/s TR Peak Gradient 38.3 mmHg PV Peak Velocity 118.0 cm/s FINDINGS Left Ventricle Normal left ventricular size and systolic function, EF 60 %. No regional wall motion abnormalities. Grade I/IV diastolic dysfunction (abnormal relaxation filling pattern), normal to mildly elevated filling pressures. Right Ventricle Normal right ventricular size and systolic function. Right Atrium Possibly of normal size Left Atrium Possibly of normal size Mitral Valve Mild mitral annular calcification. Aortic Valve Thickened aortic valve. Aortic valve sclerosis. Trace aortic valve regurgitation. Tricuspid Valve Mild tricuspid valve regurgitation. Pulmonic Valve Mild pulmonary valve regurgitation. Pericardium No pericardial effusion. Aorta Normal aortic annulus size. CONCLUSIONS Normal left ventricular size and systolic function, EF 60 %. No regional wall motion abnormalities. Grade I/IV diastolic dysfunction (abnormal relaxation filling pattern), normal to mildly elevated filling pressures. Aortic valve sclerosis. Mild mitral annular calcification. Trace aortic valve regurgitation. Mild tricuspid valve regurgitation. Mild pulmonary valve regurgitation. There is no pericardial effusion. Comparison with the previous study is difficult because of the difference in the technical quality. However there is no significant change in the 2D findings Dr Raul Marie MD FAC (Electronically Signed) Final Date: 24 November 2019 15:04 S
--- NOTE | 2019-11-24 09:42 | P.PN_ITS ---
Subjective Subjective: Interval history: Patient presented with worsening diarrhea. She was just recently discharged home. Her cultures came back with strep viridans as well as bacillus species which felt to be a contamination. Patient reports that yesterday she developed night sweats and felt feverish. She denies shortness of breath or chest pain but reports that she has difficulty to take deep breath in. Reports that she has no problem with her teeth or mouth sores. She has seen dentist several months ago. Repeat blood culture was obtained this morning. She reports that she had multiple diarrheal bowel movements per day for the last couple days Vitals/I&O/Wt Last Vital Signs Temp 97.7 F 11/24/19 04:39 Pulse 73 11/24/19 08:00 Resp 22 H 11/24/19 08:00 BP 149/76 11/24/19 08:00 Pulse Ox 95 11/24/19 08:00 11/23/19 11/24/19 11/24/19 22:59 06:59 14:59 Intake Total 1100 / 1100 Output Total 200 / 200 200 / 200 Balance 900 / 900 -200 / -200 Weight last 48 hrs Weight 99.79 kg Physical Exam Const: COMMON NORMALS: no acute distress and patient oriented x3 Resp: COMMON NORMALS: normal respiratory effort and clear to auscultation bilaterally AUSCULTATION: clear to auscultation bilaterally Cardio: COMMON NORMALS: regular rate, regular rhythm and S2 normal heart sound present RATE: regular rate RHYTHM: regular rhythm HEART SOUNDS: S2 normal heart sound present OTHER: No lower extremity edema GI: COMMON NORMALS: Normal to inspection, nondistended, normoactive bowel sounds present, Soft to palpation and non-tender PALPATION: Yes Soft to palpation Neuro: COMMON NORMALS: patient oriented x3 and no focal motor deficits Data : 11/23/19 23:44 11/23/19 23:44 A&P Assessment and plan (1) COVID-19: Status: Acute (2) Hypertensive urgency: Status: Acute (3) Diarrhea: Status: Acute Additional A&P Information Bacteremia with strep viridans on 11/20/2019 which felt to be a contamination. SARS COVID 19+ Currently saturating well on 2 L nasal cannula Was diagnosed 10 days ago Currently complaining of fever, chills, fatigue and lethargy Chest x-ray is pretty much similar to the one she had before no new changes identified Subacute diarrhea with dehydration I would hold her metformin which could cause diarrhea, hold fenofibrate and multivitamin Hold Lasix because of dehydration Continue fluid resuscitation Had mild epigastric tenderness, No signs of sepsis No signs of peritonitis I would use Lomotil once C. difficile is ruled out Hypokalemia secondary to Lasix and dehydration: Repleted Hypertensive urgency: I would start her on irbesartan 150 mg as 300 mg dosage caused hypotension Continue Imdur, holding Lasix for now I will give her 1 dose of hydralazine 10 mg IV and monitor her response Full code Cardiac diet DVT prophylaxis Lovenox PLAN: Since patient reports episode of night sweat and fever will request one more blood culture in addition to 1 requested this morning and then start patient on ceftriaxone. Awaiting stool studies. Will request transthoracic echocardiogram to evaluate for possible endocarditis. Patient reports some abdominal fullness and therefore will obtain CT scan of abdomen/pelvis with IV contrast considering her positive blood cultures Continue IV fluids but will switch normal saline to LR. Attestations Medical Necessity Statement*: Patient with diarrhea and concern for bacteremia requires close inpatient monitoring, treatment and evaluation. Time Spent in Patient Care: 16 - 35 minutes Coding Level of Care Code Acute Medical Language Specialist for [facility] Diagnoses COVID-19 U07.1 Hypertensive urgency I16.0 Diarrhea R19.7
--- NOTE | 2019-11-24 09:50 | CTR_ITS ---
PROCEDURE INFORMATION: Exam: CT Abdomen And Pelvis With Contrast Exam date and time: 11/24/2019 9:51 AM Age: 74 years old Clinical indication: Fever and other: Diarrhea; Additional info: Bacteremia, diarrhea and abdominal fullness TECHNIQUE: Imaging protocol: Computed tomography of the abdomen and pelvis with intravenous contrast. Radiation optimization: All CT scans at this facility use at least one of these dose optimization techniques: automated exposure control; mA and/or kV adjustment per patient size (includes targeted exams where dose is matched to clinical indication); or iterative reconstruction. Contrast material: OMNI 300; Contrast volume: 95 ml; Contrast route: INTRAVENOUS (IV); COMPARISON: CR XR sacrum coccyx min 2V [id number] 08/30/2019 1:39 PM RADIATION DOSE METRICS: Total DLP (mGy-cm): 1470.95 FINDINGS: Lungs: Patchy ground-glass opacities in both lower lobes and right middle lobe. Mild interstitial scarring. Pleural space: Trace bilateral pleural effusions. Liver: Normal. No mass. Gallbladder and bile ducts: Small calculus in the gallbladder fundus. The gallbladder and bile ducts are otherwise within normal limits. Pancreas: Normal. No ductal dilation. Spleen: Calcified granulomas in the spleen. Subcentimeter hypodensity in the spleen is too small to characterize but most likely a cyst. No follow-up is recommended. Adrenals: Normal. No mass. Kidneys and ureters: Normal. No hydronephrosis. Stomach and bowel: Diverticulosis of the colon without diverticulitis. The stomach and small bowel are unremarkable. Small radiopaque densities in the proximal colon are most likely medication capsules. Appendix: The appendix is visualized and is normal. Intraperitoneal space: Unremarkable. No free air. No significant fluid collection. Vasculature: Unremarkable. No abdominal aortic aneurysm. Lymph nodes: Unremarkable. No enlarged lymph nodes. Bladder: Unremarkable as visualized. Reproductive: The uterus and left ovary are absent. Normal right ovary. Bones/joints: Unremarkable. No acute fracture. Soft tissues: Unremarkable. CT/CT abdomen pelvis w con* [id number] IMPRESSION: 1. No acute abnormality identified in the abdomen or pelvis. 2. Ground-glass opacities in the lung bases could represent pulmonary edema or multilobar pneumonia. 3. Trace pleural effusions. 4. Cholelithiasis. 5. Diverticulosis of the colon. Radiation Dose CTDIVOL = (mGy): DLP = 1470.95 (mGy-cm)
[2019-11-24] MEDS: isosorbide mononitrate ER 60 mg Tablet PO (10:33)
[2019-11-24] MEDS: losartan 50 mg Tablet PO (10:33)
[2019-11-24] MEDS: potassium chloride ER 10 mEq Tablet 20 MEQ PO ×2 (10:33→17:38)
--- NOTE | 2019-11-24 10:34 | PC.NURSE ---
Blood cultures drawn prior to antibiotic initiation.
[2019-11-24] MEDS: cefTRIAXone 1,000 MG in sodium chloride 0.9% (plus) 50 ML 100 MG IV ×2 (10:59→22:31)
[2019-11-24] MEDS: lactated ringers 1,000 ML 75 ML IV (11:00)
[2019-11-24 12:43] LABS: Glucose Point of Care 110 mg/dL (70-110)
[2019-11-24] MEDS: iohexol 300 mg/mL 100 mL Btl IV (16:34)
[2019-11-24 17:17] LABS: Glucose Point of Care 96 mg/dL (70-110)
[2019-11-24] MEDS: gabapentin 300 mg Capsule 600 MG PO (17:38)
[2019-11-24] MEDS: acetaminophen 325 mg Tablet 650 MG PO (18:35)
[2019-11-24 19:56] LABS: Glucose Point of Care 128 mg/dL (70-110)
[2019-11-25] VITALS (128 sets, daily range): BP systolic 96–225; BP diastolic 52–132; PULSE 54–102; RESP 14–32; TEMP 36.1–37.1; O2SAT 89–96
[2019-11-25] MEDS: lactated ringers 1,000 ML 75 ML IV (01:46)
[2019-11-25] MEDS: enoxaparin 40 mg/0.4 mL Syringe SUBCUT (05:06)
[2019-11-25] MEDS: carvedilol 12.5 mg Tablet PO ×2 (05:08→16:44)
[2019-11-25 06:45] LABS: Basophils % 0.2 %; Eosinophils # 0.1 10^3/uL (0.0-0.8); Eosinophils % 1.9 %; Hematocrit 34.3 % (37.0-47.0); Hemoglobin 10.8 g/dL (11.5-15.3); Lymphocytes # 1.5 10^3/uL (0.8-4.8); Lymphocytes % 29.2 %; Mean Corpuscular HGB Conc 31.5 g/dL (30.0-36.0); Mean Corpuscular Hemoglobin 28.7 pg (28.0-34.0); Mean Corpuscular Volume 91.2 fL (81-99); Mean Platelet Volume 10.7 fL (7.4-10.4); Monocytes # 0.5 10^3/uL (0.2-0.9); Monocytes % 9.5 %; Neutrophils % 57.8 %; Nucleated Red Blood Cells % 0 %; Platelet Count 240 10^3/cmm (130-400); Red Blood Count 3.76 10^6/uL (4.1-5.3); Red Cell Distribution Width 13.2 % (12.1-15.1); White Blood Count 5.2 10^3/uL (4.0-10.0)
[2019-11-25 07:12] LABS: Chloride 110 mmol/L (98-107); Sodium 142 mmol/L (136-145)
[2019-11-25] MEDS: gabapentin 300 mg Capsule PO (07:14)
[2019-11-25] MEDS: losartan 50 mg Tablet PO (07:20)
[2019-11-25] MEDS: isosorbide mononitrate ER 60 mg Tablet PO (07:20)
[2019-11-25] MEDS: potassium chloride ER 10 mEq Tablet 20 MEQ PO ×2 (07:20→16:45)
[2019-11-25 07:36] LABS: Glucose Point of Care 113 mg/dL (70-110)
[2019-11-25 07:44] LABS: Alanine Aminotransferase 23 U/L (0-33); Albumin Level 3.3 g/dL (3.5-5.2); Alkaline Phosphatase 64 IU/L (35-105); Aspartate Amino Transferase 21 U/L (0-32); Blood Urea Nitrogen 7 mg/dL (8-23); Calcium 9.1 mg/dL (8.5-10.5); Carbon Dioxide 22 mmol/L (22-29); Creatinine Clr Calc Pharmacy 77.3729; Globulin 3.1 g/dL (1.3-4.6); Glucose 94 mg/dL (65-115); Osmolality Calculated 290 mOsm/kg (285-295); Total Bilirubin 0.2 mg/dL (0.15-1.2); Total Protein 6.4 g/dL (6.6-8.7)
--- NOTE | 2019-11-25 07:51 | PC.NURSE ---
BP 225/100, 0900 meds given early.
[2019-11-25 07:59] LABS: Magnesium 1.9 mg/dL (1.7-2.3)
[2019-11-25] MEDS: acetaminophen 325 mg Tablet 650 MG PO ×2 (08:19→16:44)
--- NOTE | 2019-11-25 09:21 | PC.NURSE ---
Irbesartan/Avapro Dr. Alvarado ordered for home BP meds to be continued, along with Hydralizine 10 mg IVP Q6H. Called pharmacy, we do not carry Irbesartan, but patient was substituted on Losartin.
--- NOTE | 2019-11-25 09:32 | PM.PN ---
Subjective Subjective: Interval history: is in 150sPatient had no more diarrhea since yesterday. Reports feeling much better. I have requested to sets of blood culture yesterday prior to initiating ceftriaxone but it appears that patient only had 1 set of cultures performed. She denies shortness of breath or chest pain. She does report dry cough. She requires 1.5 L to saturate in the low 90s. Reports that this morning she ate her breakfast and was able to taste it. Her blood pressure was in 200s earlier today. During my evaluation it is 151/71. Patient is not in any distress. She does report generalized weakness. Reports that she was able to get to bedside commode without difficulty. She had no more diaphoresis and remained afebrile since yesterday. Her echocardiogram showed no evidence of vegetations. CT scan of abdomen pelvis was unremarkable. She had evidence of pneumonia which appears to be related to COVID-19. Vitals/I&O/Wt Last Vital Signs Temp 97.0 F L 11/25/19 07:30 Pulse 63 11/25/19 09:00 Resp 20 H 11/25/19 09:00 BP 151/71 11/25/19 09:00 Pulse Ox 92 11/25/19 09:00 11/24/19 11/25/19 11/25/19 22:59 06:59 14:59 Intake Total 530 / 1370 1530 / 2900 770 / 770 Output Total 575 / 775 450 / 1225 200 / 200 Balance -45 / 595 1080 / 1675 570 / 570 Weight last 48 hrs Weight 99.79 kg Physical Exam Const: COMMON NORMALS: no acute distress and patient oriented x3 Resp: COMMON NORMALS: normal respiratory effort and clear to auscultation bilaterally AUSCULTATION: clear to auscultation bilaterally Cardio: COMMON NORMALS: regular rate, regular rhythm and S2 normal heart sound present RATE: regular rate RHYTHM: regular rhythm HEART SOUNDS: S2 normal heart sound present OTHER: No lower extremity edema GI: COMMON NORMALS: Normal to inspection, nondistended, normoactive bowel sounds present, Soft to palpation and non-tender PALPATION: Yes Soft to palpation Neuro: COMMON NORMALS: patient oriented x3 and no focal motor deficits Data : 11/25/19 06:15 11/25/19 06:15 Micro: Microbiology 11/24/19 07:15 C.difficile Toxin B Gene (PCR) - Final Stool - Stool Aspirate 11/24/19 10:25 Blood Culture - Preliminary Blood SPECIMEN COLLECTED 11/24/19 10:25 Blood Culture - Preliminary Blood SPECIMEN COLLECTED A&P Assessment and plan (1) COVID-19: Status: Acute (2) Hypertensive urgency: Status: Acute (3) Diarrhea: Status: Acute (4) Pneumonia due to 2019-nCoV: Present on admission Status: Acute Additional A&P Information Bacteremia with strep viridans on 11/20/2019 which felt to be a contamination. SARS COVID 19+ Currently saturating well on 2 L nasal cannula Was diagnosed 10 days ago Currently complaining of fever, chills, fatigue and lethargy Chest x-ray is pretty much similar to the one she had before no new changes identified Subacute diarrhea with dehydration I would hold her metformin which could cause diarrhea, hold fenofibrate and multivitamin Hold Lasix because of dehydration Continue fluid resuscitation Had mild epigastric tenderness, No signs of sepsis No signs of peritonitis I would use Lomotil once C. difficile is ruled out Hypokalemia secondary to Lasix and dehydration: Repleted Hypertensive urgency: I would start her on irbesartan 150 mg as 300 mg dosage caused hypotension Continue Imdur, holding Lasix for now I will give her 1 dose of hydralazine 10 mg IV and monitor her response Full code Cardiac diet DVT prophylaxis Lovenox PLAN: Given evidence of multilobar pneumonia and need for oxygen I will go ahead and start patient on remdesivir and dexamethasone. Discontinue IV fluids as patient's oral intake is adequate. Discussed with KARLA Lackey and we will get patient up and ambulate. Attestations Medical Necessity Statement*: Patient with COVID-19 pneumonia requires close ICU monitoring and treatment as she remains symptomatic. Time Spent in Patient Care: 16 - 35 minutes Coding Level of Care Code Acute Foot Specialist for [facility] Diagnoses COVID-19 U07.1 Hypertensive urgency I16.0 Diarrhea R19.7 Pneumonia due to 2019-nCoV U07.1; J12.89
[2019-11-25] MEDS: cefTRIAXone 1,000 MG in sodium chloride 0.9% (plus) 50 ML 100 MG IV ×2 (09:40→21:00)
[2019-11-25] MEDS: dexamethasone 10 mg/mL INJ 6 MG IV (10:41)
--- NOTE | 2019-11-25 12:40 | PC.NURSE ---
Ambulation Patient ambulated in room without assistance approximately 20 ft, no difficulties. Patient stood at sink and brushed teeth, fixed hair, cleansed self without assistance. No SOB noted.
[2019-11-25] MEDS: hyDRALAzine 20 mg/mL INJ 1 mL 10 MG IVP ×2 (13:52→20:02)
[2019-11-25] MEDS: gabapentin 300 mg Capsule 600 MG PO (16:44)
[2019-11-25 17:20] LABS: Glucose Point of Care 211 mg/dL (70-110)
--- NOTE | 2019-11-25 17:21 | PC.NURSE ---
BP 205/100, 1800 meds given early.
[2019-11-25 23:15] LABS: Glucose Point of Care 172 mg/dL (70-110)
[2019-11-25] MEDS: amlodipine 10 mg Tablet PO (23:48)
[2019-11-25] MEDS: aspirin 81 mg EC Tablet PO (23:48)
[2019-11-25] MEDS: ketorolac 30 mg/mL INJ 15 MG IVP (23:53)
[2019-11-26] VITALS (48 sets, daily range): BP systolic 117–235; BP diastolic 45–162; PULSE 59–87; RESP 12–27; TEMP 36.3–37.1; O2SAT 91–96
--- NOTE | 2019-11-26 00:04 | PC.NURSE ---
Pt/s bp was 219/98 at 2330. This nurse notified Dr. Swain and recieved new orders for amlodipine 10mg tablet. Pt also c/o headache rating 9/10 and refusing tylenol. New orders for aspirin 81 mg tablet and toradol 15 mg IVP recieved. Pt was educated about these new medications. Bp at 0000 was 210/119. Will continue to monitor.
[2019-11-26] MEDS: diphenhydrAMINE 50 mg Capsule PO (01:19)
[2019-11-26] MEDS: hyDRALAzine 20 mg/mL INJ 1 mL 10 MG IVP ×3 (02:20→22:30)
[2019-11-26] MEDS: carvedilol 12.5 mg Tablet PO ×2 (05:00→17:23)
[2019-11-26] MEDS: enoxaparin 40 mg/0.4 mL Syringe SUBCUT (05:00)
[2019-11-26 06:23] LABS: Basophils % 0.4 %; Eosinophils % 0.3 %; Hematocrit 35.1 % (37.0-47.0); Hemoglobin 11.2 g/dL (11.5-15.3); Lymphocytes # 1.9 10^3/uL (0.8-4.8); Lymphocytes % 26.5 %; Mean Corpuscular HGB Conc 31.9 g/dL (30.0-36.0); Mean Corpuscular Hemoglobin 28.2 pg (28.0-34.0); Mean Corpuscular Volume 88.4 fL (81-99); Mean Platelet Volume 9.7 fL (7.4-10.4); Monocytes # 0.7 10^3/uL (0.2-0.9); Monocytes % 9.6 %; Neutrophils # 4.18 10^3/uL (1.8-7.7); Neutrophils % 59.4 %; Nucleated Red Blood Cells % 0 %; Platelet Count 379 10^3/cmm (130-400); Red Blood Count 3.97 10^6/uL (4.1-5.3); Red Cell Distribution Width 12.9 % (12.1-15.1); White Blood Count 7.1 10^3/uL (4.0-10.0)
[2019-11-26 06:41] LABS: Alanine Aminotransferase 21 U/L (0-33); Albumin Level 3.7 g/dL (3.5-5.2); Alkaline Phosphatase 64 IU/L (35-105); Anion Gap 12.3 (5-19); Aspartate Amino Transferase 16 U/L (0-32); Blood Urea Nitrogen 9 mg/dL (8-23); Carbon Dioxide 23 mmol/L (22-29); Chloride 109 mmol/L (98-107); Creatinine Clr Calc Pharmacy 77.3729; Globulin 3.2 g/dL (1.3-4.6); Glucose 105 mg/dL (65-115); Osmolality Calculated 288 mOsm/kg (285-295); Potassium 3.3 mmol/L (3.5-5.1); Sodium 141 mmol/L (136-145); Total Bilirubin 0.2 mg/dL (0.15-1.2); Total Protein 6.9 g/dL (6.6-8.7)
[2019-11-26 07:29] LABS: Slide Review Slide Review Perform
[2019-11-26] MEDS: gabapentin 300 mg Capsule PO (09:18)
[2019-11-26 09:19] LABS: Glucose Point of Care 165 mg/dL (70-110)
[2019-11-26] MEDS: potassium chloride ER 10 mEq Tablet 20 MEQ PO ×2 (09:20→17:23)
[2019-11-26] MEDS: aspirin 81 mg EC Tablet PO (09:21)
[2019-11-26] MEDS: isosorbide mononitrate ER 60 mg Tablet PO (09:22)
[2019-11-26] MEDS: losartan 50 mg Tablet PO (09:23)
[2019-11-26] MEDS: dexamethasone 10 mg/mL INJ 6 MG IV (09:30)
[2019-11-26] MEDS: cefTRIAXone 1,000 MG in sodium chloride 0.9% (plus) 50 ML 100 MG IV ×2 (10:54→23:52)
[2019-11-26 11:13] LABS: Glucose Point of Care 142 mg/dL (70-110)
[2019-11-26] MEDS: fluoxetine 10 mg Capsule PO (11:18)
[2019-11-26 14:37] LABS: NT Pro B Type Natriuretic Pept 1250 pg/mL (0-125); Procalcitonin 0.06 ng/mL (0-0.5)
[2019-11-26 14:48] LABS: C Reactive Protein 10.6 mg/L (0.0-4.9); Ferritin 199 ng/mL (15-150); Lactate Dehydrogenase 242 U/L (135-214)
--- NOTE | 2019-11-26 16:12 | P.PN_ITS ---
Subjective Subjective: Interval history: No acute events overnight. Patient has not had any further diarrhea. Overnight patient had a difficult night because of blood pressures running on the higher side. Overnight she had headache. No more headache at present. She states at home also sometimes she has difficulty controlling her blood pressure of that where she is on multiple antihypertens mari. At present denies having nausea, vomiting, diarrhea, difficulty in breathing, change in sense of smell or taste. Vitals/I&O/Wt Last Vital Signs Temp 98.1 F 11/26/19 14:30 Pulse 77 11/26/19 14:30 Resp 22 H 11/26/19 14:30 BP 134/78 11/26/19 14:00 Pulse Ox 94 11/26/19 14:30 11/26/19 11/26/19 11/26/19 06:59 14:59 22:59 Intake Total 720 / 720 Output Total 450 / 1750 800 / 800 Balance -450 / -420 -80 / -80 Physical Exam Narrative: EXAM NARRATIVE: No acute distress, AO x3. On room air. S1, S2 no tachycardia noted Abdomen soft, nontender, bowel sounds present. Neurologically nonfocal deficit Alert oriented x3, GCS 15 Data : 11/26/19 06:00 11/26/19 06:00 Micro: Microbiology 11/24/19 10:25 Blood Culture - Preliminary Blood NEGATIVE TO DATE 11/24/19 10:25 Blood Culture - Preliminary Blood NEGATIVE TO DATE A&P Assessment and plan (1) COVID-19: Status: Acute (2) Hypertensive urgency: Status: Acute (3) Diarrhea: Status: Acute (4) Pneumonia due to 2019-nCoV: Present on admission Status: Acute (5) Streptococcal bacteremia: Status: Acute Additional A&P Information SARS COVID 19+: Currently not requiring oxygen supplementation. Was diagnosed 10 days ago. Today is day 2 of antiviral medication with Remdesevir. As patient is not requiring any oxygen at present. If she continue s to remain on room air tomorrow can stop the antiviral medication after finishing 3-day course. Start patient on vitamin C and zinc. Start patient on Advair and Spiriva. We will continue to monitor include Alexander inflammatory markers daily including d- dimer, ferritin, LDH, proBNP, CRP. Check procalcitonin. We will start patient on full dose anticoagulation with Eliquis. Tessalon Perles. Monitor EKG daily for QTC prolongation as patient is on antiviral medications. Recent bacteremia with strep viridans: Confirmed with the lab that patient had 2 separate bottles positive for strep viridans. Blood cultures at present preliminary are negative. Susceptibility of staph viridans was done. Continue patient on ceftriaxone. Day 3 today. If repeat blood cultures come back positive will plan to do echocardiogram to rule out infective endocarditis. Subacute diarrhea with dehydration: No further diarrhea. C. difficile negative. Enteric panel pending. Lomotil as needed. Hypokalemia secondary to Lasix and dehydration: Repleted Hypertensive urgency: Continue with home dose of ibesartan, carvedilol, isosorbide. Goal blood pressure of less than 140/90 mmHg. If required will increase the dos e of ibesartan or add amlodipine. Continue other chronic medications like fluoxetine, fenofibrate. Type 2 diabetes mellitus: Continue patient on insulin sliding scale. Full code Cardiac diet Full dose anticoagulation with Eliquis. Attestations Medical Necessity Statement*: COVID pneumonia, bacteremia. 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
[2019-11-26] MEDS: ascorbic acid 500 mg Tablet PO (17:23)
[2019-11-26 18:21] LABS: Glucose Point of Care 204 mg/dL (70-110)
[2019-11-26] MEDS: gabapentin 300 mg Capsule 600 MG PO (21:30)
[2019-11-26 21:31] LABS: Glucose Point of Care 133 mg/dL (70-110)
[2019-11-26] MEDS: TRAMadol 50 mg Tablet PO (22:30)
[2019-11-27] VITALS (48 sets, daily range): BP systolic 115–188; BP diastolic 48–128; PULSE 57–84; RESP 14–27; TEMP 36.2–36.9; O2SAT 91–100
[2019-11-27] MEDS: benzonatate 100 mg Capsule PO ×2 (00:37→21:47)
[2019-11-27] MEDS: enoxaparin 40 mg/0.4 mL Syringe SUBCUT (05:25)
[2019-11-27] MEDS: carvedilol 12.5 mg Tablet PO ×2 (05:28→16:44)
--- NOTE | 2019-11-27 05:45 | PC.NURSE ---
Shift events: Patient is now on 2L O2 via nasal cannula for comfort. No decline in SpO2; however, patient stated that the oxygen helped with her cough. Tessalon shaq given 1 time for cough; in addition, ocean nasal spray added as well. Patient given pain medication x 1 with resolution in pain. BP elevated throughout shift; hydralazine given once. Remains alert and oriented x 4. Anxious to go home. Has questions regarding HHC. VSS.
[2019-11-27 05:59] LABS: Basophils % 0.3 %; Eosinophils % 0.1 %; Hematocrit 34.7 % (37.0-47.0); Lymphocytes # 1.7 10^3/uL (0.8-4.8); Lymphocytes % 19.8 %; Mean Corpuscular HGB Conc 31.7 g/dL (30.0-36.0); Mean Corpuscular Hemoglobin 28.2 pg (28.0-34.0); Mean Platelet Volume 9.9 fL (7.4-10.4); Monocytes # 0.9 10^3/uL (0.2-0.9); Monocytes % 10.5 %; Neutrophils # 5.73 10^3/uL (1.8-7.7); Neutrophils % 65.7 %; Nucleated Red Blood Cells % 0 %; Platelet Count 429 10^3/cmm (130-400); Red Cell Distribution Width 13.2 % (12.1-15.1); White Blood Count 8.7 10^3/uL (4.0-10.0)
--- NOTE | 2019-11-27 06:00 | XRR_ITS ---
PROCEDURE INFORMATION: Exam: XR Chest, 1 View Exam date and time: 11/27/2019 7:01 AM Age: 74 years old Clinical indication: Condition or disease; Other: Covid TECHNIQUE: Imaging protocol: XR of the chest Views: 1 view. COMPARISON: CR XR chest 1V portable [id number] 11/24/2019 12:58 AM FINDINGS: Lungs: Emphysema Subtle airspace disease within the right upper lobe. Lungs are otherwise well fairly well aerated. Mildly improved. Pleural space: Unremarkable. No pleural effusion. No pneumothorax. Heart/Mediastinum: Unremarkable. No cardiomegaly. Bones/joints: Unremarkable. XR/XR chest 1V portable [id number] IMPRESSION: Subtle airspace disease within the right upper lobe. Lungs are otherwise well fairly well aerated. Mildly improved.
[2019-11-27 06:26] LABS: D Dimer 0.85 ug/mIFEU (0-0.59)
[2019-11-27 06:34] LABS: Alanine Aminotransferase 30 U/L (0-33); Albumin Level 3.5 g/dL (3.5-5.2); Alkaline Phosphatase 65 IU/L (35-105); Anion Gap 17.7 (5-19); Aspartate Amino Transferase 24 U/L (0-32); Blood Urea Nitrogen 17 mg/dL (8-23); Carbon Dioxide 19 mmol/L (22-29); Chloride 107 mmol/L (98-107); Creatinine Clr Calc Pharmacy 77.3729; Globulin 3.4 g/dL (1.3-4.6); Glucose 126 mg/dL (65-115); Osmolality Calculated 288 mOsm/kg (285-295); Potassium 3.7 mmol/L (3.5-5.1); Sodium 140 mmol/L (136-145); Total Bilirubin 0.2 mg/dL (0.15-1.2); Total Protein 6.9 g/dL (6.6-8.7)
[2019-11-27 06:35] LABS: C Reactive Protein 6.9 mg/L (0.0-4.9); Creatine Phosphokinase 61 U/L (26-192); Magnesium 2.1 mg/dL (1.7-2.3)
[2019-11-27 06:43] LABS: NT Pro B Type Natriuretic Pept 654 pg/mL (0-125); Procalcitonin 0.05 ng/mL (0-0.5)
[2019-11-27 06:54] LABS: Ferritin 181 ng/mL (15-150); Lactate Dehydrogenase 214 U/L (135-214)
[2019-11-27 07:15] LABS: Slide Review Slide Review Perform
[2019-11-27 07:55] LABS: Glucose Point of Care 96 mg/dL (70-110)
--- NOTE | 2019-11-27 09:17 | DCPLANNER ---
Explained Pg 2 of IM to pt's Spouse; Mickey via the phone [phone]. She doesn't have a cell phone with her and there is not a phone in the room, No questions. Copy will be provided.
--- NOTE | 2019-11-27 10:00 | ECG_ITS ---
[facility] ED Test Date: 2019-11-26 Pat Name: Dee Solares Department: Room: ICU19 Gender: Female [employer] Supervisor: : [id number] Requested By: Claudy Peacock Order Number: [id number] Jennifer MD: Aniyah Prince M.D. Measurements Intervals [place] Rate: 61 P: 35 [place]: 189 QRS: 9 QRSD: 85 T: 11 QT: 455 QTc: 462 Interpretive Statements SINUS RHYTHM POSSIBLE LEFT ATRIAL ENLARGEMENT [-0.1mV P WAVE IN V1/V2] POSSIBLE LEFT VENTRICULAR HYPERTROPHY [VOLTAGE CRITERIA PLUS LAE OR QRS WIDENING] Compared to ECG 11/20/2019 16:10:08 Sinus arrhythmia no longer present Electronically Signed On 11-27-2019 21:15:07 CDT by Aniyah Prince M.D. [email or web address]
[2019-11-27] MEDS: dexamethasone 10 mg/mL INJ 6 MG IV (10:05)
[2019-11-27] MEDS: aspirin 81 mg EC Tablet PO (10:06)
[2019-11-27] MEDS: potassium chloride ER 10 mEq Tablet 20 MEQ PO ×2 (10:06→18:14)
[2019-11-27] MEDS: fluoxetine 10 mg Capsule PO (10:06)
[2019-11-27] MEDS: zinc gluconate 50 mg Tablet PO (10:06)
[2019-11-27] MEDS: losartan 50 mg Tablet PO (10:06)
[2019-11-27] MEDS: isosorbide mononitrate ER 60 mg Tablet PO (10:06)
[2019-11-27] MEDS: gabapentin 300 mg Capsule PO (10:07)
[2019-11-27] MEDS: ascorbic acid 500 mg Tablet PO ×2 (10:07→18:14)
[2019-11-27] MEDS: cefTRIAXone 1,000 MG in sodium chloride 0.9% (plus) 50 ML 100 MG IV (10:08)
[2019-11-27] MEDS: ALPRAZolam 0.25 mg Tablet PO ×2 (11:38→21:47)
[2019-11-27 11:55] LABS: Glucose Point of Care 113 mg/dL (70-110)
--- NOTE | 2019-11-27 12:57 | P.PN_ITS ---
Subjective Subjective: Interval history: No acute events overnight. Overnight patient states she has had a restless night. Patient states she is very anxious. She denies of any nausea, vomiting, headache, dizziness, no more diarrhea. On examination she saturated 95% on room air with a blood pressure is 150/80 mmHg, heart rate of 67 bpm. Vitals/I&O/Wt Last Vital Signs Temp 98.4 F 11/27/19 10:00 Pulse 67 11/27/19 12:00 Resp 20 H 11/27/19 12:00 BP 150/82 11/27/19 12:00 Pulse Ox 94 11/27/19 12:00 11/26/19 11/27/19 11/27/19 22:59 06:59 14:59 Intake Total 490 / 1210 550 / 1760 400 / 400 Balance 490 / 410 550 / 960 400 / 400 Weight last 48 hrs Weight 98.43 kg Physical Exam Narrative: EXAM NARRATIVE: No acute distress, AO x3. On room air. S1, S2 no tachycardia noted Abdomen soft, nontender, bowel sounds present. Neurologically nonfocal deficit Alert oriented x3, GCS 15 Data : 11/27/19 04:45 11/27/19 04:45 A&P Assessment and plan (1) COVID-19: Status: Acute (2) Hypertensive urgency: Status: Acute (3) Diarrhea: Status: Acute (4) Pneumonia due to 2019-nCoV: Present on admission Status: Acute (5) Streptococcal bacteremia: Status: Acute Additional A&P Information SARS COVID 19+: Currently not requiring oxygen supplementation. Was diagnosed 13 days ago. Today is day 3 of antiviral medication with Remdesevir. We will stop the antiviral treatment today on day 3 as she has been on room air for last 48 hours. We will monitor her for next 24 hours and see how she does. Continue vitamin C, zinc. Continue with Advair and Spiriva. Continue with Eliquis. Most likely will continue Eliquis for 14 days post discharge. Continue with dexamethasone at current dose. Will most likely discharge patient on steroid taper as an outpatient. Start patient on vitamin C and zinc. Start patient on Advair and Spiriva. We will continue to monitor inflammatory markers daily including d-dimer, ferritin, LDH, proBNP, CRP. Check procalcitonin. For now inflammatory markers are trending down appropriately. Tommie Sue. Monitor EKG daily for QTC prolongation as patient is on antiviral medications. Recent bacteremia with strep viridans: Confirmed with the lab that patient had 2 separate bottles positive for strep viridans. Blood cultures at present preliminary are negative. Susceptibility of staph viridans was done. Continue patient on ceftriaxone. Day 4 today. If repeat blood cultures come back positive will plan to do echocardiogram to rule out infective endocarditis. Subacute diarrhea with dehydration: No further diarrhea. C. difficile negative. Enteric panel pending. Lomotil as needed. Hypokalemia secondary to Lasix and dehydration: Repleted Hypertensive urgency: Continue with home dose of ibesartan, carvedilol, isosorbide. Goal blood pressure of less than 140/90 mmHg. If required will increase the dose of ibesartan or add amlodipine. For now we will give her Xanax as needed 0.25 daily. If the blood pressure continues to remain high even after Xanax and will add antihypertensives. Continue other chronic medications like fluoxetine, fenofibrate. Type 2 diabetes mellitus: Continue patient on insulin sliding scale. Full code Cardiac diet Full dose anticoagulation with Eliquis. Attestations Medical Necessity Statement*: COVID 19 PNA, Strep bactermemia Critical Care Time: Critical Care Time (min): 80 Coding Level of Care Code Acute Business Management Specialist for [facility] Diagnoses COVID-19 U07.1 Hypertensive urgency I16.0 Diarrhea R19.7 Pneumonia due to 2019-nCoV U07.1; J12.89 Streptococcal bacteremia R78.81; B95.5
--- NOTE | 2019-11-27 15:18 | PC.NURSE ---
Patient ambulated throughout room on room air. Maintained oxygen saturation at 94-96%. Currently resting in bed. No c/o voiced at this time. Will continue to monitor.
[2019-11-27 17:18] LABS: Glucose Point of Care 152 mg/dL (70-110)
[2019-11-27] MEDS: gabapentin 300 mg Capsule 600 MG PO (18:14)
[2019-11-27] MEDS: apixaban 5 mg Tablet PO (18:14)
[2019-11-27 23:46] LABS: Glucose Point of Care 154 mg/dL (70-110)
[2019-11-28] VITALS (33 sets, daily range): BP systolic 124–198; BP diastolic 60–113; PULSE 57–92; RESP 1–23; TEMP 36.6–37.1; O2SAT 91–96
[2019-11-28] MEDS: carvedilol 12.5 mg Tablet PO (05:07)
[2019-11-28 05:55] LABS: Basophils % 0.2 %; Eosinophils % 0.1 %; Hematocrit 34.8 % (37.0-47.0); Lymphocytes % 19.3 %; Mean Corpuscular HGB Conc 31.6 g/dL (30.0-36.0); Mean Corpuscular Hemoglobin 28.8 pg (28.0-34.0); Mean Corpuscular Volume 91.1 fL (81-99); Mean Platelet Volume 9.8 fL (7.4-10.4); Neutrophils # 6.75 10^3/uL (1.8-7.7); Neutrophils % 66.3 %; Nucleated Red Blood Cells % 0 %; Platelet Count 418 10^3/cmm (130-400); Red Blood Count 3.82 10^6/uL (4.1-5.3); Red Cell Distribution Width 13.3 % (12.1-15.1); White Blood Count 10.2 10^3/uL (4.0-10.0)
[2019-11-28 06:20] LABS: Alanine Aminotransferase 50 U/L (0-33); Albumin Level 3.4 g/dL (3.5-5.2); Alkaline Phosphatase 67 IU/L (35-105); Anion Gap 18.1 (5-19); Aspartate Amino Transferase 37 U/L (0-32); Blood Urea Nitrogen 19 mg/dL (8-23); C Reactive Protein 4.7 mg/L (0.0-4.9); Calcium 8.8 mg/dL (8.5-10.5); Carbon Dioxide 18 mmol/L (22-29); Chloride 109 mmol/L (98-107); Creatine Phosphokinase 37 U/L (26-192); Globulin 3.1 g/dL (1.3-4.6); Glucose 114 mg/dL (65-115); Magnesium 2.3 mg/dL (1.7-2.3); Osmolality Calculated 289 mOsm/kg (285-295); Potassium 4.1 mmol/L (3.5-5.1); Sodium 141 mmol/L (136-145); Total Bilirubin 0.2 mg/dL (0.15-1.2); Total Protein 6.5 g/dL (6.6-8.7)
[2019-11-28 06:33] LABS: NT Pro B Type Natriuretic Pept 340 pg/mL (0-125); Procalcitonin 0.05 ng/mL (0-0.5)
[2019-11-28 06:44] LABS: Ferritin 165 ng/mL (15-150); Lactate Dehydrogenase 201 U/L (135-214)
--- NOTE | 2019-11-28 07:10 | PC.NURSE ---
Shift Events: Patient remains alert and oriented. Anxious to go home. Rested well with Xanax. Stated that this helped her immensely. No complaints of pain. VSS.
[2019-11-28 08:01] LABS: Glucose Point of Care 105 mg/dL (70-110)
[2019-11-28] MEDS: aspirin 81 mg EC Tablet PO (08:41)
[2019-11-28] MEDS: ascorbic acid 500 mg Tablet PO (08:41)
[2019-11-28] MEDS: fluoxetine 10 mg Capsule PO (08:41)
[2019-11-28] MEDS: apixaban 5 mg Tablet PO (08:41)
[2019-11-28] MEDS: zinc gluconate 50 mg Tablet PO (08:42)
[2019-11-28] MEDS: potassium chloride ER 10 mEq Tablet 20 MEQ PO (08:42)
[2019-11-28] MEDS: gabapentin 300 mg Capsule PO (08:42)
[2019-11-28] MEDS: isosorbide mononitrate ER 60 mg Tablet PO (08:42)
[2019-11-28] MEDS: losartan 50 mg Tablet PO (08:42)
[2019-11-28] MEDS: cefTRIAXone 1,000 MG in sodium chloride 0.9% (plus) 50 ML 100 MG IV (08:44)
[2019-11-28] MEDS: dexamethasone 10 mg/mL INJ 6 MG IV (10:54)
[2019-11-28] MEDS: amlodipine 10 mg Tablet PO (11:19)
[2019-11-28 11:22] LABS: Glucose Point of Care 107 mg/dL (70-110)
--- NOTE | 2019-11-28 12:18 | P.DS_ITS ---
Discharge Providers Date of Admission: 11/24/19 15:58 Date of Discharge: November 28, 2019 Attending Provider at Admission: Renate Swain MD Attending Provider at Discharge: Claudy Peacock MD Primary Care Provider: Karie Alarcon MD Diagnoses at Discharge Discharge Diagnosis (1) COVID-19: Status: Acute (2) Hypertensive urgency: Status: Acute (3) Diarrhea: Status: Acute (4) Pneumonia due to 2019-nCoV: Status: Acute (5) Streptococcal bacteremia: Status: Acute (6) Acute diarrhea: Status: Acute Problem details: Likely secondary to gastroenteritis. 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 Patient is stating that her diarrhea improved a little bit but her symptoms started today after she ate scrambled eggs in the morning, she has been having diarrheal episodes every hour, she is denying vomiting but endorsing abdominal cramps and epigastric region, she is denying dysuria, she also noticed fever 101 at home today. Because of her worsening of symptoms she decided to come to the hospital for further evaluation. Diagnosis in the ER revealed normal leukocytosis, no leukopenia identified, potassium 3.2, she is hypertensive, she has not taken her antihypertensive medication at home, glucose 132, she has been resuscitated with Ringer lactate in the ER, urinalysis is contaminated however patient is denying signs of UTI. Currently on 2 L saturating 92%. Her blood work on admission showed elevated viral markers along with patient requiring supplemental oxygen to keep saturation over 90%. Because of this reason she was started on antibiotic treatment with Remdesevir along with IV Decadron. During hospitalization patient was found to have high blood pressures for which her antihypertensives were adjusted. Amlodipine has been added to her home dose. On review of her old records patient was recently in hospital when her blood cultures had 2 out of 4 bottles positive for strep viridans. Repeat blood cultures have been negative. She recently had positive blood cultures she was started on ceftriaxone. She has received 5 dose of ceftriaxone while in hospital. She is been discharged on Augmentin to finish overall 14-day course as per culture direction. Patient overall received 3 days course of Remdesevir as she has been off supplemental oxygen for last 48 hours. She was monitored for 24 hours post stopping antibiotic treatment and she continued to remain hemodynamically stable saturating more than 92% on room air both at rest and ambulation. She is been discharged hemodynamically stable condition at her baseline with advised to follow-up with primary care provider within next 2 weeks. She is been discharged on vitamin C, zinc, Eliquis because of elevated d-dimer for next 2 weeks along with inhalation treatment for next 2 weeks as well. Physical Exam Narrative: EXAM NARRATIVE: No acute distress, AO x3. On room air. S1, S2 no tachycardia noted Abdomen soft, nontender, bowel sounds present. Neurologically nonfocal deficit Alert oriented x3, GCS 15 Discharge Data Data Completed and Pending: Completed Studies During Hospitalization Category Date Time Status CT abdomen pelvis w con* [id number] Rout ine Cat Scan 11/24/19 09:50 Completed XR chest 1V britt ble [id number] QAM Exams 11/27/19 06:00 Completed XR chest 1V britt ble [id number] Stat Exams 11/24/19 00:30 Completed CV echo complete* [id number] Routine Ultrasound 11/24/19 09:42 Completed Pending at discharge Category Date Time Status Blood Culture Sta t Lab 11/24/19 10:25 Results Clostridioides Di fficile PCR Routin e Lab 11/24/19 07:15 Results Enteric Bacterial Panel by PCR Rout ine Lab 11/24/19 07:15 Results Miscellaneous Ethel t Routine Lab 11/24/19 Received Labs from last 24 hours 11/28/19 11/28/19 11/28/19 11:01 07:39 04:50 WBC RBC Hgb Hct MCV MCH MCHC RDW Plt Count MPV Neut % (Auto) Lymph % (Auto) Towner % (Auto) Eos % (Auto) Baso % (Auto) Neut # (Auto) Lymph # (Auto) Towner # (Auto) Eos # (Auto) Baso # (Auto) Nucleated RBC % (a uto) Nucleated RBCs # D-Dimer Sodium Potassium Chloride Carbon Dioxide Anion Gap BUN Creatinine GFR Calculation Glucose POC Glucose 107 105 Calculated Osmolal ity Calcium Magnesium Ferritin 165 H Total Bilirubin AST ALT Alkaline Phosphata se Lactate Dehydrogen ase 201 Creatine Kinase C-Reactive Protein NT-Pro-B Natriuret Pep 340 H Total Protein Albumin Globulin Procalcitonin 0.05 11/28/19 11/28/19 11/28/19 04:50 04:50 04:50 WBC 10.2 H RBC 3.82 L Hgb 11.0 L Hct 34.8 L MCV 91.1 MCH 28.8 MCHC 31.6 RDW 13.3 Plt Count 418 H MPV 9.8 Neut % (Auto) 66.3 Lymph % (Auto) 19.3 Towner % (Auto) 10.0 Eos % (Auto) 0.1 Baso % (Auto) 0.2 Neut # (Auto) 6.75 Lymph # (Auto) 2.0 Towner # (Auto) 1.0 H Eos # (Auto) 0.0 Baso # (Auto) 0.0 Nucleated RBC % (a uto) 0 Nucleated RBCs # 0.0 D-Dimer 0.40 Sodium 141 Potassium 4.1 Chloride 109 H Carbon Dioxide 18 L Anion Gap 18.1 BUN 19 Creatinine 0.5 GFR Calculation Not Reportable Glucose 114 POC Glucose Calculated Osmolal ity 289 Calcium 8.8 Magnesium 2.3 Ferritin Total Bilirubin 0.2 AST 37 H ALT 50 H Alkaline Phosphata se 67 Lactate Dehydrogen ase Creatine Kinase 37 C-Reactive Protein 4.7 NT-Pro-B Natriuret Pep Total Protein 6.5 L Albumin 3.4 L Globulin 3.1 Procalcitonin 11/27/19 11/27/19 20:48 16:32 WBC RBC Hgb Hct MCV MCH MCHC RDW Plt Count MPV Neut % (Auto) Lymph % (Auto) Towner % (Auto) Eos % (Auto) Baso % (Auto) Neut # (Auto) Lymph # (Auto) Towner # (Auto) Eos # (Auto) Baso # (Auto) Nucleated RBC % (a uto) Nucleated RBCs # D-Dimer Sodium Potassium Chloride Carbon Dioxide Anion Gap BUN Creatinine GFR Calculation Glucose POC Glucose 154 152 Calculated Osmolal ity Calcium Magnesium Ferritin Total Bilirubin AST ALT Alkaline Phosphata se Lactate Dehydrogen ase Creatine Kinase C-Reactive Protein NT-Pro-B Natriuret Pep Total Protein Albumin Globulin Procalcitonin Addt'l Data from Hospital Stay: CT ABDOMEN/PELVIS [address] [address] [address] Scan Report Signed Patient: Obdulio Solares #: [id number] : 7Acct#:[id number] Age/Sex: 74 / FADM Date: 11/24/19 Loc: IC[facility]oom/Bed: [place] [address]: Dony Alvarado MD Ordering Provider/Ordering MD: Dony Alvarado MD Date of Service: 11/24/19 Procedure(s): CT abdomen pelvis w con* [id number] Accession Number(s): [id number] Report Number: [id number] PROCEDURE INFORMATION: Exam: CT Abdomen And Pelvis With Contrast Exam date and time: 11/24/2019 9:51 AM Age: 74 years old Clinical indication: Fever and other: Diarrhea; Additional info: Bacteremia, diarrhea and abdominal fullness TECHNIQUE: Imaging protocol: Computed tomography of the abdomen and pelvis with intravenous contrast. Radiation optimization: All CT scans at this facility use at least one of these dose optimization techniques: automated exposure control; mA and/or kV adjustment per patient size (includes targeted exams where dose is matched to clinical indication); or iterative reconstruction. Contrast material: OMNI 300; Contrast volume: 95 ml; Contrast route: INTRAVENOUS (IV); COMPARISON: CR XR sacrum coccyx min 2V [id number] 08/30/2019 1:39 PM RADIATION DOSE METRICS: Total DLP (mGy-cm): 1470.95 FINDINGS: Lungs: Patchy ground-glass opacities in both lower lobes and right middle lobe. Mild interstitial scarring. Pleural space: Trace bilateral pleural effusions. Liver: Normal. No mass. Gallbladder and bile ducts: Small calculus in the gallbladder fundus. The gallbladder and bile ducts are otherwise within normal limits. Pancreas: Normal. No ductal dilation. Spleen: Calcified granulomas in the spleen. Subcentimeter hypodensity in the spleen is too small to characterize but most likely a cyst. No follow-up is recommended. Adrenals: Normal. No mass. Kidneys and ureters: Normal. No hydronephrosis. Stomach and bowel: Diverticulosis of the colon without diverticulitis. The stomach and small bowel are unremarkable. Small radiopaque densities in the proximal colon are most likely medication capsules. Appendix: The appendix is visualized and is normal. Intraperitoneal space: Unremarkable. No free air. No significant fluid collection. Vasculature: Unremarkable. No abdominal aortic aneurysm. Lymph nodes: Unremarkable. No enlarged lymph nodes. Bladder: Unremarkable as visualized. Reproductive: The uterus and left ovary are absent. Normal right ovary. Bones/joints: Unremarkable. No acute fracture. Soft tissues: Unremarkable. CT/CT abdomen pelvis w con* [id number] IMPRESSION: 1. No acute abnormality identified in the abdomen or pelvis. 2. Ground-glass opacities in the lung bases could represent pulmonary edema or multilobar pneumonia. 3. Trace pleural effusions. 4. Cholelithiasis. 5. Diverticulosis of the colon. ECHO FINDINGS Left Ventricle Normal left ventricular size and systolic function, EF 60 %. No regional wall motion abnormalities. Grade I/IV diastolic dysfunction (abnormal relaxation filling pattern), normal to mildly elevated filling pressures. Right Ventricle Normal right ventricular size and systolic function. Right Atrium Possibly of normal size Left Atrium Possibly of normal size Mitral Valve Mild mitral annular calcification. Aortic Valve Thickened aortic valve. Aortic valve sclerosis. Trace aortic valve regurgitation. Tricuspid Valve Mild tricuspid valve regurgitation. Pulmonic Valve Mild pulmonary valve regurgitation. Pericardium No pericardial effusion. Aorta Normal aortic annulus size. CONCLUSIONS Normal left ventricular size and systolic function, EF 60 %. No regional wall motion abnormalities. Grade I/IV diastolic dysfunction (abnormal relaxation filling pattern), normal to mildly elevated filling pressures. Aortic valve sclerosis. Mild mitral annular calcification. Trace aortic valve regurgitation. Mild tricuspid valve regurgitation. Mild pulmonary valve regurgitation. There is no pericardial effusion. Comparison with the previous study is difficult because of the difference in the technical quality. However there is no significant change in the 2D findings Dr Raul Marie MD [facility] (Electronically Signed) Final Date: 24 November 2019 Vitals: Last Vital Signs Temp 98.0 F 11/28/19 08:00 Pulse 64 11/28/19 11:00 Resp 21 H 11/28/19 11:00 BP 167/90 11/28/19 11:00 Pulse Ox 92 11/28/19 11:00 Discharge Plan Discharge Patient Disposition: Home Health Service Condition: Stable Prescriptions: New Advair Diskus 250-50 mcg/dose Blister With Device 1 puff inhalation BID Qty: 1 RF: 0 tramadol 50 mg Tablet 50 mg PO Q6H PRN (Reason: Moderate Pain) Qty: 10 RF: 0 alprazolam 0.25 mg Tablet 0.25 mg PO BEDTIME Qty: 10 RF: 0 Vitamin C 500 mg Tablet 500 mg PO BID Qty: 30 RF: 0 amlodipine 10 mg Tablet 10 mg PO DAILY Qty: 30 RF: 0 benzonatate 100 mg Capsule 100 mg PO TID PRN (Reason: cough) Qty: 20 RF: 0 zinc gluconate 50 mg Tablet 50 mg PO DAILY Qty: 30 RF: 0 Eliquis 5 mg Tablet 5 mg PO BID Qty: 28 RF: 0 Augmentin 875-125 mg tablet 1 tab PO BID Qty: 14 RF: 0 Medrol (Ed) 4 mg tablets,dose pack See Rx Instructions .ROUTE .COMPLEX Qty: 21 RF: 0 Continued carvedilol 12.5 mg tablet 12.5 mg PO Q12H Qty: 180 RF: 1 irbesartan 150 mg tablet 150 mg PO DAILY Qty: 90 RF: 1 fluoxetine 10 mg capsule 10 mg PO DAILY Qty: 90 RF: 1 gabapentin 300 mg capsule See Rx Instructions .ROUTE .COMPLEX Qty: 180 RF: 5 irbesartan 300 mg tablet 300 mg PO DAILY Qty: 90 RF: 3 metformin 500 mg tablet See Rx Instructions .ROUTE .COMPLEX Qty: 360 RF: 3 Vitamin D3 50 mcg (2,000 unit) Capsule 50 mcg PO DAILY RF: 0 vitamin X43-gqxhj acid 500-400 mcg Tablet 1 tab PO DAILY RF: 0 biotin 1 cap PO DAILY RF: 0 atorvastatin 40 mg tablet 40 mg PO DAILY RF: 0 cetirizine 10 mg tablet 10 mg PO DAILY RF: 0 isosorbide mononitrate 60 mg tablet extended release 24 hr 60 mg PO DAILY RF: 0 potassium chloride 20 mEq tablet,ER particles/crystals 20 meq PO BID RF: 0 furosemide 20 mg tablet 20 mg PO DAILY RF: 0 fenofibrate 160 mg tablet 160 mg PO DAILY RF: 0 Discharge Orders: Discharge Order (Routine); Ordered 11/28/19 Ordered By: Claudy Peacock Referrals: [facility] [Outside] (Home Health should be calling you to schedule a time to set up a visit within the next 48 hours. If you need to reach them can call number provided and ask to be connected to Karen at the [facility].) Karie Alarcon MD [Primary Care Provider] - 1 week Discharge Diet: Usual diet Discharge Activity: Resume usual activity and Increase activity as tolerated Activity Restrictions/Additional Instructions: You will be taking the Medrol pack as per the directions on the pack. Vitamin C and zinc for 2 weeks. Advair and Spiriva for nebulization for next 2 weeks. Eliquis twice daily for next 2 weeks as discussed. Danger signs as we discussed would be if you getting confused, getting more short of breath, having fever of more than 101 Fahrenheit not controlled by Tylenol, not able to keep down your meals or medications. Please follow-up with your primary care provider within next 2 weeks. Please maintain social distancing as we discussed. Please wear mask whenever if you need to be in company of other people. Discharge Attestations Time Spent in Discharge Care*: critical care time Critical Care Time (min): 60 Specific Discharge Activities: Specific discharge activities: educating patient, educating and/or supporting family/caregiver, discussing with pcp/other providers, discussing with supportive employment case manager/social workers/dc planners, documenting/other paperwork and evaluating patient/reviewing data Status at Discharge: Cognitive status at discharge: cognitively intact , Behavioral status at discharge: cooperative , Functional status at discharge: independent ambulation Overall status at discharge: patient is progressing back to baseline Quality Metrics Clinical Quality Measures During this hospital stay, did patient experience: None Coding Level of Care Code 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
--- NOTE | 2019-11-30 16:26 | PC.SOCIAL ---
Follow up call completed. Discussed current care situation. Mrs. Solares seems to be doing really well. No shortness of breath. She received meds to beds and are taking medications as directed and knows to continue. We discussed to rinse mouth out after inhaler use. She does not have a computer or smartphone and is unable to do televisits. She plans on seeing primary care in next week if feeling a little better. has been in and set up routine monitoring for vital signs form home for nurse to see in [place]. Shashi is willing to donate plasma if qualifies. Will retrieve more information on this and get this to him. We discussed care post discharge in detail which includes handwashing. Disinfecting house and to wear mask if have to go out. If going to appt alert staff ahead of time. We discussed to leave home only if necessary over next few weeks. Continue to be cautious regarding social distancing, etc as well. Positive feedback received regarding the patient care received.
== END 2019-11-28 16:42 | disposition home health service (06) | DRG 177 ==
LOC: ER 11-24 03:26 → ICU 11-24 03:43
PROVIDERS: Internal Medicine; Nurse Practitioner Family; Admitting Provider Internal Medicine; Emergency Provider Emergency Medicine; PCP Family Medicine; Visit Provider Student in an Organized Health Care Education/Training Program
DX: U07.1 COVID-19 (principal); J18.9 Pneumonia, unspecified organism; I10 Essential (primary) hypertension; H91.92 Unspecified hearing loss, left ear; F32.9 Major depressive disorder, single episode, unspecified; F41.9 Anxiety disorder, unspecified; E78.5 Hyperlipidemia, unspecified; M79.7 Fibromyalgia; K21.9 Gastro-esophageal reflux disease without esophagitis; I34.0 Nonrheumatic mitral (valve) insufficiency; M19.90 Unspecified osteoarthritis, unspecified site; Z87.891 Personal history of nicotine dependence; I16.0 Hypertensive urgency; E86.0 Dehydration; E87.6 Hypokalemia; B95.5 Unspecified streptococcus as the cause of diseases classified elsewhere; E11.65 Type 2 diabetes mellitus with hyperglycemia; K52.9 Noninfective gastroenteritis and colitis, unspecified
CPT/HCPCS: 12345; 36415; 36416; 71045; 74177; 80048; 80053; 81001; 82550; 82728; 82962; 83605; 83615; 83735; 83880; 84145; 84484; 85025; 85378; 85384; 85610; 86140; 87040; 87046; 87077; 87186; 87205; 87493; 87506; 93005; 93306; 96360; 96361; 96372; 96375; 99283; G0378; J0131; J0360; J0696; J1100; J1650; J1815; J1885; J2405; J3535; J7030; J7799; Q0163; Q9967

== ENCOUNTER → 2019-12-05 17:15 | Outpatient (BNVA) | payer MEDICARE, OTHER, SELFPAY | PROVIDERS: PCP Family Medicine; Visit Provider Nurse Practitioner Family | DX: U07.1 COVID-19 (principal); J12.89 Other viral pneumonia | CPT/HCPCS: 87635 ==

== ENCOUNTER → 2019-12-17 11:09 | Outpatient (BNVA) | payer MEDICARE, OTHER, SELFPAY | PROVIDERS: PCP Family Medicine; Visit Provider Nurse Practitioner Family | DX: U07.1 COVID-19 (principal) | CPT/HCPCS: 87635 ==

== ENCOUNTER → 2019-12-24 16:30 | Outpatient (BNVA) | payer MEDICARE, OTHER, SELFPAY | PROVIDERS: PCP Family Medicine; Visit Provider Family Medicine | DX: E11.65 Type 2 diabetes mellitus with hyperglycemia (principal); E78.2 Mixed hyperlipidemia; I10 Essential (primary) hypertension; Z79.899 Other long term (current) drug therapy | CPT/HCPCS: 80053; 80061; 83036; 85025 ==

== ENCOUNTER 2020-02-29 13:35 | Outpatient (CLI) | payer MEDICARE, OTHER, SELFPAY ==
--- NOTE | 2020-02-29 13:43 | MM_ITS ---
WS: [id number] BILATERAL DIGITAL SCREENING MAMMOGRAPHY WITH CAD CLINICAL INFORMATION: SCREENING HISTORY: Screening mammogram. No current complaints. COMPARISON: TECHNIQUE: Bilateral CC and MLO views. FINDINGS: Scattered fibroglandular densities bilaterally. No suspicious focal mass, asymmetry, calcifications, or architectural distortion. No evidence of malignancy. Vascular calcification. Intramammary lymph no saul in both axillary tails. MM/[place] [id number] IMPRESSION: BI-RADS: 2-Benign FOLLOW UP: 1 Year Follow-up Recommend return to annual screening mammography.
== END 2020-02-29 13:36 | disposition home or self-care (01) ==
PROVIDERS: PCP Family Medicine; Visit Provider Family Medicine
DX: Z12.31 Encounter for screening mammogram for malignant neoplasm of breast (principal)
CPT/HCPCS: 77067

== ENCOUNTER 2020-04-19 06:18 | Emergency (ER) | payer MEDICARE, OTHER, SELFPAY ==
[2020-04-19 06:23] VITALS: BP 132/67; PULSE 70; RESP 18; TEMP 36.1; O2SAT 98; BMI 35.4
--- NOTE | 2020-04-19 06:26 | XRR_ITS ---
PROCEDURE INFORMATION: Exam: XR Chest, 1 View Exam date and time: 04/19/2020 6:27 AM Age: 75 years old Clinical indication: Cough and shortness of breath; Additional info: Dyspnea/cough TECHNIQUE: Imaging protocol: XR of the chest Views: 1 view. COMPARISON: CR XR chest 1V portable [id number] 11/27/2019 7:03 AM FINDINGS: Lungs: Unremarkable. No consolidation. Pleural space: Unremarkable. No pleural effusion. No pneumothorax. Heart/Mediastinum: The heart size is normal for the AP projection. There is calcification of the aortic arch. Bones/joints: Unremarkable. XR/XR chest 1V portable [id number] IMPRESSION: No acute abnormalities are seen in the chest.
--- NOTE | 2020-04-19 06:27 | ECG_ITS ---
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
--- NOTE | 2020-04-19 06:38 | W.ED.CHESTPA ---
HPI - Chest Pain General: Chief Complaint: Chest Pain Stated Complaint: SOB Time Seen by Provider: 04/19/20 06:23 History of Present Illness: HPI narrative: 75-year-old female presents complaining of right upper quadrant abdominal pain that began last night she has been nauseous but no vomiting. She has not previously had symptoms like this recently she has had difficulty with her stomach in the past but nothing recently. She has a history of atrial fibrillation and is on apixaban. Complaining of shortness of breath with this as well most of her shortness of breath is due to pain when she takes a deep breath in the right upper quadrant. No acholic stools no hematochezia melena hematemesis or coffee-ground emesis. Onset (ago): hour(s) Timing of current episode: episodic Prior episodes: No Onset: during rest Pain location: other (Right upper quadrant) Pain radiation: none Severity: moderate Quality: aching Relieving factors: nothing Exacerbating factors: nothing Associated symptoms: Reports abdominal pain and dyspnea; Deny diaphoresis, fever(s), leg edema, nausea, palpitations, sense of impending doom, syncope or vomiting Treatment prior to arrival: none Review of Systems Const: Denies: fever(s) or diaphoresis ENMT: Denies: throat pain, ear or mastoid pain, nasal discharge or nasal congestion Card: Denies: palpitations or syncope Resp: Reports: dyspnea GI: Reports: abdominal pain; Denies: nausea or vomiting : Denies: flank pain, difficulty voiding, dysuria, urinary frequency or urinary urgency Skin/Breast: Denies: rash or pruritus [facility] ED PFSH: Medical History (Updated 04/19/20 @ 11:55 by Antony Valentine DO) Atypical chest pain Benign essential HTN Deafness in left ear Depression DJD (degenerative joint disease) Dyslipidemia Fibromyalgia GERD (gastroesophageal reflux disease) Hyperlipidemia Hypertension Intracranial tumor Mitral regurgitation Osteoarthritis Surgical History Previous back surgery Family History Mother Cancer Colon cancer, involving appendix Father CAD (coronary artery disease) Sister Cancer Colon cancer Brother Cancer Colon cancer Other No family history of disorders Social History Smoking and tobacco status: former smoker Quit status (tobacco): has quit using tobacco Year quit tobacco: 1996 Second hand smoke exposure: No Alcohol intake: never Lives independently: Yes Household members: spouse Marital status: Current occupational status: retired History of recent travel: No Current gender identity: Female Special heidi needs: No Physical Exam Const: COMMON NORMALS: no acute distress GENERAL APPEARANCE: cooperative and comfortable ORIENTATION/CONSCIOUSNESS: Yes awake, Yes oriented to person, Yes oriented to place and Yes oriented to time HENMT: COMMON NORMALS: normocephalic, atraumatic and hearing grossly normal bilaterally HEAD & SCALP: normocephalic and atraumatic Neck/C-Spine: COMMON NORMALS: no JVD Resp: COMMON NORMALS: normal respiratory effort, No retractions, No use of accessory muscles and clear to auscultation bilaterally AUSCULTATION: clear to auscultation bilaterally Cardio: COMMON NORMALS: no JVD, regular rate, regular rhythm and No murmurs present (Cardio) RATE: regular rate RHYTHM: regular rhythm GI: COMMON NORMALS: Soft to palpation and No hepatosplenomegaly present AUSCULTATION: Yes normoactive bowel sounds PALPATION: Yes Soft to palpation, No Tenderness to palpation present (GI), No Guarding due to palpation present (GI) and Yes No hepatosplenomegaly present Extremity: COMMON NORMALS: normal to inspection, capillary refill normal, no clubbing, cyanosis or edema, no calf tenderness and no pedal edema Neuro: SENSORIUM/ORIENTATION: Yes oriented to person, Yes oriented to place and Yes oriented to time Skin: COMMON NORMALS: no rashes or lesions noted GENERAL SKIN EXAM: no rashes or lesions noted Course Vital Signs: Vital signs: Vital Signs Temperature 96.9 F L 04/19/20 06:23 Pulse Rate 66 04/19/20 12:15 Respiratory Rate 19 H 04/19/20 12:15 Blood Pressure 159/78 04/19/20 12:15 Pulse Oximetry 93 04/19/20 12:15 MDM - Chest Pain MDM Narrative: Medical decision making narrative: Patient is right upper quadrant pain has improved. She has elevation of her LFTs and her alk phos but her T bili is normal there is a few small gallbladder stones but no evidence of hydrops or thickening of the wall. Her white count is normal. Some of this may be due to her statin and the fenofibrate. We will have her stop both discussed with Dr. Woodward. At this point he would not advise further evaluation for gallbladder issues given the pattern of the elevated liver enzymes not being terribly consistent with cholelithiasis in conjunction with imaging. We will discharge her home on clear liquid diet hold the atorvastatin and fenofibrate hepatitis panel is pending. Lab Data: Labs: Lab Results 04/19/20 04/19/20 04/19/20 Range/Units 06:42 06:42 06:42 WBC 8.0 (4.0-10.0) 10^3/ uL RBC 4.36 (4.1-5.3) 10^6/u L Hgb 12.5 (11.5-15.3) g/dL Hct 40.5 (37.0-47.0) % MCV 92.9 (81-99) fL MCH 28.7 (28.0-34.0) pg MCHC 30.9 (30.0-36.0) g/dL RDW 13.3 (12.1-15.1) % Plt Count 323 (130-400) 10^3/c mm MPV 9.5 (7.4-10.4) fL Neut % (Auto) 68.7 % Lymph % (Auto) 21.0 % Grainger % (Auto) 8.3 % Eos % (Auto) 1.0 % Baso % (Auto) 0.6 % Neut # (Auto) 5.52 (1.8-7.7) 10^3/u L Lymph # (Auto) 1.7 (0.8-4.8) 10^3/u L Grainger # (Auto) 0.7 (0.2-0.9) 10^3/u L Eos # (Auto) 0.1 (0.0-0.8) 10^3/u L Baso # (Auto) 0.1 (0.0-0.1) 10^3/u L Nucleated RBC % (a uto) 0 % Nucleated RBCs # 0.0 /100WBC Sodium 142 (136-145) mmol/L Potassium 4.2 (3.5-5.1) mmol/L Chloride 108 H (98-107) mmol/L Carbon Dioxide 21 L (22-29) mmol/L Anion Gap 17.2 (5-19) BUN 22 (8-23) mg/dL Creatinine 0.7 (0.5-0.9) mg/dL GFR Calculation Not Reportable Glucose 178 H (65-115) mg/dL Calculated Osmolal ity 302 H (285-295) mOsm/k g Calcium 9.7 (8.5-10.5) mg/dL Total Bilirubin 0.6 (0.15-1.2) mg/dL AST 386 H (0-32) U/L ALT 222 H (0-33) U/L Alkaline Phosphata se 129 H (35-105) IU/L Troponin T Baselin e 6 (0-10) ng/L Troponin T 120 Min [place] (0-10) ng/L Delta Troponin T (0-10) ABS# Total Protein 7.1 (6.6-8.7) g/dL Albumin 4.0 (3.5-5.2) g/dL Globulin 3.1 (1.3-4.6) g/dL Lipase 28 (13-60) U/L 04/19/20 Range/Units 08:37 WBC (4.0-10.0) 10^3/ uL RBC (4.1-5.3) 10^6/u L Hgb (11.5-15.3) g/dL Hct (37.0-47.0) % MCV (81-99) fL MCH (28.0-34.0) pg MCHC (30.0-36.0) g/dL RDW (12.1-15.1) % Plt Count (130-400) 10^3/c mm MPV (7.4-10.4) fL Neut % (Auto) % Lymph % (Auto) % Grainger % (Auto) % Eos % (Auto) % Baso % (Auto) % Neut # (Auto) (1.8-7.7) 10^3/u L Lymph # (Auto) (0.8-4.8) 10^3/u L Grainger # (Auto) (0.2-0.9) 10^3/u L Eos # (Auto) (0.0-0.8) 10^3/u L Baso # (Auto) (0.0-0.1) 10^3/u L Nucleated RBC % (a uto) % Nucleated RBCs # /100WBC Sodium (136-145) mmol/L Potassium (3.5-5.1) mmol/L Chloride (98-107) mmol/L Carbon Dioxide (22-29) mmol/L Anion Gap (5-19) BUN (8-23) mg/dL Creatinine (0.5-0.9) mg/dL GFR Calculation Glucose (65-115) mg/dL Calculated Osmolal ity (285-295) mOsm/k g Calcium (8.5-10.5) mg/dL Total Bilirubin (0.15-1.2) mg/dL AST (0-32) U/L ALT (0-33) U/L Alkaline Phosphata se (35-105) IU/L Troponin T Baselin e (0-10) ng/L Troponin T 120 Min [place] 6.00 (0-10) ng/L Delta Troponin T 0 (0-10) ABS# Total Protein (6.6-8.7) g/dL Albumin (3.5-5.2) g/dL Globulin (1.3-4.6) g/dL Lipase (13-60) U/L Discharge Plan Discharge Patient Disposition: Home Clinical Impression: Abdominal pain, RUQ, Elevated LFTs Condition: Stable Prescriptions: Held atorvastatin 40 mg tablet 40 mg PO DAILY@22 RF: 0 Hold Instructions: Resume on 05/17/20. fenofibrate 160 mg tablet 160 mg PO DAILY@22 RF: 0 Hold Instructions: Resume on 05/17/20. No Action gabapentin 300 mg capsule See Rx Instructions .ROUTE .COMPLEX Qty: 180 RF: 5 biotin 1 cap PO DAILY@12 RF: 0 cetirizine 10 mg tablet 10 mg PO DAILY@12 RF: 0 isosorbide mononitrate 60 mg tablet extended release 24 hr 60 mg PO DAILY@12 RF: 0 Ultra CoQ10 75 mg Capsule 75 mg PO DAILY@12 RF: 0 Vitamin D3 25 mcg (1,000 unit) Tablet 25 mcg PO DAILY@12 RF: 0 Cozaar 50 mg tablet 50 mg PO DAILY@12 RF: 0 carvedilol 12.5 mg tablet 12.5 mg PO Q12H RF: 0 potassium chloride 20 mEq tablet,ER particles/crystals 20 meq PO BID@ RF: 0 Vitamin C 500 mg tablet 1,000 mg PO DAILY@12 RF: 0 amlodipine 10 mg tablet 10 mg PO DAILY@12 RF: 0 fluoxetine 10 mg capsule 10 mg PO DAILY@12 RF: 0 zinc gluconate 50 mg tablet 50 mg PO DAILY@12 RF: 0 furosemide 20 mg tablet 20 mg PO DAILY@12 RF: 0 Eliquis 5 mg tablet 5 mg PO BID RF: 0 Discharge Orders: Discharge ED (Routine); Ordered 04/19/20 Ordered By: Antony Valentine Referrals: Karie Alarcon MD [Primary Care Provider] - Discharge Diet: Clear Liquid Discharge Activity: Increase activity as tolerated Activity Restrictions/Additional Instructions: Stop atorvastatin and fenofibrate. Case management will call with an appointment with Dr. 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
--- NOTE | 2020-04-19 06:49 | USR_ITS ---
PROCEDURE INFORMATION: Exam: US Abdomen, Limited; Right Upper Quadrant Exam date and time: 04/19/2020 7:24 AM Age: 75 years old Clinical indication: Abdominal pain; Additional info: Abd pain TECHNIQUE: Imaging protocol: US abdomen. Real time ultrasound with image documentation. Limited exam focused on the right upper quadrant. COMPARISON: CT abdomen pelvis w con* [id number] 11/24/2019 4:33 PM FINDINGS: Liver: Normal. No masses. Gallbladder: There are tiny echogenicities on the dependent wall of the gallbladder which are consistent with a few tiny gallstones. The gallbladder wall is not thickened. There is no pericholecystic fluid. Common bile duct: Normal. No stones. No dilation. Pancreas: Visualized pancreas is unremarkable. Right kidney: The right kidney is normal in size but there is mild to moderate renal cortical atrophy. No renal mass or hydronephrosis is seen. Aorta: There is no aortic aneurysm. US/US gall bladder [id number] IMPRESSION: 1. Cholelithiasis. Normal bile ducts. 2. Right renal cortical atrophy.
[2020-04-19 06:56] LABS: Basophils # 0.1 10^3/uL (0.0-0.1); Basophils % 0.6 %; Eosinophils # 0.1 10^3/uL (0.0-0.8); Hematocrit 40.5 % (37.0-47.0); Hemoglobin 12.5 g/dL (11.5-15.3); Lymphocytes # 1.7 10^3/uL (0.8-4.8); Mean Corpuscular HGB Conc 30.9 g/dL (30.0-36.0); Mean Corpuscular Hemoglobin 28.7 pg (28.0-34.0); Mean Corpuscular Volume 92.9 fL (81-99); Mean Platelet Volume 9.5 fL (7.4-10.4); Monocytes # 0.7 10^3/uL (0.2-0.9); Monocytes % 8.3 %; Neutrophils # 5.52 10^3/uL (1.8-7.7); Neutrophils % 68.7 %; Nucleated Red Blood Cells % 0 %; Platelet Count 323 10^3/cmm (130-400); Red Blood Count 4.36 10^6/uL (4.1-5.3); Red Cell Distribution Width 13.3 % (12.1-15.1)
[2020-04-19 07:21] LABS: Troponin(5th) Baseline 6 ng/L (0-10)
[2020-04-19 07:36] LABS: Alanine Aminotransferase 222 U/L (0-33); Alkaline Phosphatase 129 IU/L (35-105); Anion Gap 17.2 (5-19); Aspartate Amino Transferase 386 U/L (0-32); Blood Urea Nitrogen 22 mg/dL (8-23); Calcium 9.7 mg/dL (8.5-10.5); Carbon Dioxide 21 mmol/L (22-29); Chloride 108 mmol/L (98-107); Globulin 3.1 g/dL (1.3-4.6); Glucose 178 mg/dL (65-115); Lipase 28 U/L (13-60); Osmolality Calculated 302 mOsm/kg (285-295); Potassium 4.2 mmol/L (3.5-5.1); Sodium 142 mmol/L (136-145); Total Bilirubin 0.6 mg/dL (0.15-1.2); Total Protein 7.1 g/dL (6.6-8.7)
[2020-04-19 07:43] VITALS: BP 101/72; PULSE 60; RESP 15; O2SAT 95
--- NOTE | 2020-04-19 07:54 | CTR_ITS ---
PROCEDURE INFORMATION: Exam: CT Abdomen And Pelvis With Contrast Exam date and time: 04/19/2020 8:37 AM Age: 75 years old Clinical indication: Abdominal pain; Additional info: Abd pain TECHNIQUE: Imaging protocol: Computed tomography of the abdomen and pelvis with intravenous contrast. Radiation optimization: All CT scans at this facility use at least one of these dose optimization techniques: automated exposure control; mA and/or kV adjustment per patient size (includes targeted exams where dose is matched to clinical indication); or iterative reconstruction. Contrast material: OMNI 300; Contrast volume: 95 ml; Contrast route: INTRAVENOUS (IV); COMPARISON: CT abdomen pelvis w con* [id number] 11/24/2019 4:33 PM RADIATION DOSE METRICS: Total DLP (mGy-cm): 1541.15 FINDINGS: Lungs: There is bibasilar pulmonary fibrosis. Liver: Normal. No mass. Gallbladder and bile ducts: Small gallstones. Normal bile ducts. Pancreas: Normal. No ductal dilation. Spleen: Multiple small benign calcified granulomas in the spleen. Adrenal glands: Normal. No mass. Kidneys and ureters: Normal. No hydronephrosis. Stomach and bowel: Unremarkable. No obstruction. No mucosal thickening. Appendix: Normal appendix. Intraperitoneal space: Unremarkable. No free air. No significant fluid collection. Vasculature: Calcified atherosclerotic aorta. No aneurysm. Lymph nodes: Unremarkable. No enlarged lymph nodes. Urinary bladder: Unremarkable as visualized. Reproductive: Hysterectomy, otherwise unremarkable as visualized. Bones/joints: Degenerative disease in the spine with joint space narrowing sclerosis and osteophytes. Soft tissues: Unremarkable. CT/CT abdomen pelvis w con* [id number] IMPRESSION: 1. Cholelithiasis. Normal bile ducts. 2. Basilar pulmonary fibrosis. 3. No acute abnormalities are seen in the abdomen and pelvis. Radiation Dose CTDIVOL = (mGy): DLP = 1541.15 (mGy-cm)
--- NOTE | 2020-04-19 08:27 | ECG_ITS ---
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
[2020-04-19] MEDS: iohexol 300 mg/mL 100 mL Btl IV (08:51)
[2020-04-19 09:44] LABS: Troponin 5 2HR Delta 0 ABS# (0-10)
[2020-04-19 10:00] VITALS: BP 160/88; PULSE 65; RESP 17; O2SAT 95
--- NOTE | 2020-04-19 10:21 | PC.PHAR ---
PT BROUGHT IN MEDICATION BOTTLES-PT STATES SHE HAS ELIQUIS 5MG AND METFORMIN 500MG AT HOME BUT ISNT TAKING THEM
[2020-04-19 11:00] VITALS: BP 157/77; PULSE 67; RESP 18; O2SAT 92
[2020-04-19 12:15] VITALS: BP 159/78; PULSE 66; RESP 19; O2SAT 93
[2020-04-19 17:24] LABS: Hepatitis A Antibody IgM Non-Reactive (Nonreactive); Hepatitis B Core IgM Non-Reactive (Nonreactive); Hepatitis B Surface Antigen Non-Reactive (Nonreactive); Hepatitis C Virus Antibody Non-Reactive (Nonreactive)
--- NOTE | 2020-04-22 09:37 | DCPLANNER ---
horse racetrack manager had message to schedule a follow up appointment for patient with Dr. Woodward. horse racetrack manager faxed patients information to the office of Dr. Woodward, will call for appointment information.
--- NOTE | 2020-04-29 14:01 | DCPLANNER ---
Patient has a follow up appointment scheduled for Wednesday, May 06, 2020 at 2:[address] Woodward. Clinic will call patient with appointment information.
--- NOTE | 2020-05-30 11:03 | DCPLANNER ---
Patient had a follow up appointment scheduled for 05.06.[address] Woodward - patient did attend appointment.
== END 2020-04-19 12:14 | disposition home or self-care (01) ==
PROVIDERS: Emergency Provider Family Medicine; PCP Family Medicine
DX: R10.11 Right upper quadrant pain (principal); R79.89 Other specified abnormal findings of blood chemistry; Z79.01 Long term (current) use of anticoagulants; I10 Essential (primary) hypertension; E78.5 Hyperlipidemia, unspecified; Z87.891 Personal history of nicotine dependence
CPT/HCPCS: 12345; 36415; 71045; 74177; 76705; 80053; 80074; 83690; 84484; 85025; 93005; 99283; Q9967

== ENCOUNTER 2020-07-14 11:30 | Outpatient (CLI) | payer MEDICARE, OTHER, SELFPAY ==
--- NOTE | 2020-07-14 11:41 | USCV_ITS ---
Dee Solares Age: 75 Gender: F : 1945 Exam Date: 07/14/2020 11:52 Ordering Phys: Raul Marie MD ([email or web address]) Technologist: Margi Gavin Exam Location: [facility] [place] Indication: POST COVID SOB BP: 140 / 78 HR: 56 Rhythm: Sinus Technical Quality: Adequate MEASUREMENTS (Male / Female) Normal Values 2D ECHO LV Diastolic Diameter PLAX 3.1 cm 4.2 - 5.9 / 3.9 - 5.3 cm LV Systolic Diameter PLAX 2.1 cm LV Chamber Size 3.9 cm IVS Diastolic Thickness 1.4 cm 0.6 - 1.0 / 0.6 - 0.9 cm IVS Systolic Thickness 1.6 cm LVPW Diastolic Thickness 1.1 cm 0.6 - 1.0 / 0.6 - 0.9 cm LVPW Systolic Thickness 1.6 cm RV Chamber Size 2.8 cm LVOT Diameter 2.0 cm LV Ejection Fraction 2D Teich 61.9 % LV Ejection Fraction MOD 2C 59.7 % LV Ejection Fraction 2C AL 59.1 % LA Diameter 3.8 cm LA Width 3.3 cm LA Height 4.4 cm RA Width 2.8 cm RA Height 3.7 cm Aorta at Sinotubular Diameter 3.3 cm M-MODE LV Diastolic Diameter MM 3.6 cm 4.2 - 5.9 / 3.9 - 5.3 cm LV Systolic Diameter MM 2.0 cm LV Ejection Fraction MM Teich 76.6 % IVS Diastolic Thickness MM 1.5 cm 0.6 - 1.0 / 0.6 - 0.9 cm IVS Systolic Thickness MM 1.9 cm LVPW Diastolic Thickness MM 1.2 cm 0.6 - 1.0 / 0.6 - 0.9 cm LVPW Systolic Thickness MM 1.9 cm RV Diastolic Diameter MM 1.4 cm Aortic Annulus Diameter 3.1 cm LA Ao Ratio MM 1.3 MV E Point Septal Separation 0.4 cm DOPPLER AV Peak Velocity 167.0 cm/s LVOT Peak Velocity 158.0 cm/s AV Area Cont Eq vti 3.3 cm squared AV Area Cont Eq pk 3.1 cm squared MV Area PHT 2.0 cm squared Mitral E to A Ratio 0.6 MV E' Velocity 40.0 cm/s Mitral E to MV E' Ratio 10.1 Mitral E to LV E' Lateral Ratio 9.2 Mitral E to LV E' Septal Ratio 11.4 TR Peak Velocity 219.1 cm/s TR Peak Gradient 19.2 mmHg TR Mean Velocity 155.0 cm/s TR Mean Gradient 10.8 mmHg TR Velocity Time Integral 54.8 cm TV Peak E Velocity 50.0 cm/s PV Peak Velocity 88.0 cm/s RV Acceleration Time 0.2 s RV Ejection Time 0.4 s RV AcT/ET 0.5 FINDINGS Left Ventricle Normal left ventricular size and systolic function, EF 71 %. Mild left ventricular hypertrophy. No regional wall motion abnormalities. Grade I/IV diastolic dysfunction (abnormal relaxation filling pattern), normal to mildly elevated filling pressures. Right Ventricle The right ventricle is normal in size and function. Right Atrium The right atrium is normal in size. Left Atrium The left atrium is normal in size. Mitral Valve No gross abnormalities noted Aortic Valve Trace aortic valve regurgitation. Thickened aortic valve. Tricuspid Valve Trace tricuspid valve regurgitation. Pulmonic Valve No gross abnormalities noted Pericardium Normal pericardium without effusion. Aorta Normal ascending aorta dimension. CONCLUSIONS Normal left ventricular size and systolic function, EF 71 %. Mild left ventricular hypertrophy. No regional wall motion abnormalities. Grade I/IV diastolic dysfunction (abnormal relaxation filling pattern), normal to mildly elevated filling pressures. Trace aortic valve regurgitation. Some features of aortic valve sclerosis Trace of aortic and tricuspid regurgitation There is no pericardial effusion. There are no intracardiac masses. Compared to the study from 11/24/2019, there may not be a significant change Dr Raul Marie MD [facility] (Electronically Signed) Final Date: 15 July 2020 09:20 S
== END 2020-07-14 11:31 | disposition home or self-care (01) ==
LOC: RAD 11:39
PROVIDERS: PCP Family Medicine; Visit Provider Internal Medicine Cardiovascular Disease
DX: R07.89 Other chest pain (principal); R06.02 Shortness of breath; I08.2 Rheumatic disorders of both aortic and tricuspid valves; I50.33 Acute on chronic diastolic (congestive) heart failure
CPT/HCPCS: 80048; 83880; 93306

== ENCOUNTER → 2020-11-13 14:56 | Outpatient (BNVA) | payer MEDICARE, OTHER, SELFPAY | PROVIDERS: PCP Family Medicine; Visit Provider Internal Medicine Cardiovascular Disease | DX: I50.33 Acute on chronic diastolic (congestive) heart failure (principal); R06.02 Shortness of breath; R07.89 Other chest pain; E78.2 Mixed hyperlipidemia | CPT/HCPCS: 80048; 83880 ==

== ENCOUNTER → 2021-05-28 14:36 | Outpatient (BNVA) | payer MEDICARE, OTHER, SELFPAY | PROVIDERS: PCP Family Medicine; Visit Provider Internal Medicine Cardiovascular Disease | DX: I50.33 Acute on chronic diastolic (congestive) heart failure (principal); R07.89 Other chest pain; E78.2 Mixed hyperlipidemia; I34.0 Nonrheumatic mitral (valve) insufficiency; I11.0 Hypertensive heart disease with heart failure; Z87.891 Personal history of nicotine dependence | CPT/HCPCS: 99214 ==

== ENCOUNTER → 2021-11-26 11:50 | Outpatient (BNVA) | payer MEDICARE, OTHER, SELFPAY | PROVIDERS: PCP Family Medicine; Visit Provider Internal Medicine Cardiovascular Disease | DX: R06.02 Shortness of breath (principal); R05.9 Cough, unspecified; E78.5 Hyperlipidemia, unspecified; I34.0 Nonrheumatic mitral (valve) insufficiency; I10 Essential (primary) hypertension; Z87.891 Personal history of nicotine dependence | CPT/HCPCS: 71046; 80048; 83880; 99214 ==

== ENCOUNTER → 2021-12-04 08:17 | Outpatient (BNVA) | payer MEDICARE, OTHER, SELFPAY | PROVIDERS: PCP Family Medicine; Visit Provider Family Medicine | DX: E78.5 Hyperlipidemia, unspecified (principal); I16.0 Hypertensive urgency; I95.9 Hypotension, unspecified; E11.9 Type 2 diabetes mellitus without complications | CPT/HCPCS: 80053; 80061; 83036; 84443 ==

== ENCOUNTER 2022-01-11 14:02 | Outpatient (CLI) | payer MEDICARE, OTHER, SELFPAY ==
--- NOTE | 2022-01-11 14:09 | MM_ITS ---
WS: [id number] BILATERAL 3D TOMOSYNTHESIS DIGITAL SCREENING MAMMOGRAPHY WITH CAD CLINICAL INFORMATION: SCREENING HISTORY: Screening mammogram. No current complaints. COMPARISON: February 29, 2020 TECHNIQUE: Bilateral CC and MLO views. FINDINGS: Scattered fibroglandular densities bilaterally. No suspicious focal mass, asymmetry, calcifications, or architectural distortion. No evidence of malignancy. Vascular calcifications. A few incidental pun ctate calcifications. Stable intramammary lymph nodes. MM/[place] [id number] IMPRESSION: BI-RADS: 2-Benign FOLLOW UP: 1 Year Follow-up Recommend return to annual screening mammography.
== END 2022-01-11 14:03 | disposition home or self-care (01) ==
PROVIDERS: PCP Family Medicine; Visit Provider Family Medicine
DX: Z12.31 Encounter for screening mammogram for malignant neoplasm of breast (principal)
CPT/HCPCS: 77063; 77067

== ENCOUNTER → 2022-03-31 09:21 | Outpatient (BNVA) | payer MEDICARE, OTHER, SELFPAY | PROVIDERS: PCP Family Medicine; Visit Provider Anesthesiology Pain Medicine | DX: M54.12 Radiculopathy, cervical region (principal); M50.90 Cervical disc disorder, unspecified, unspecified cervical region; M79.601 Pain in right arm; M79.602 Pain in left arm | CPT/HCPCS: 72050; 99205 ==

== ENCOUNTER 2022-04-12 14:42 | Outpatient (CLI) | payer MEDICARE, OTHER, SELFPAY ==
--- NOTE | 2022-04-12 15:15 | MR_ITS ---
WS: [id number] MRI CERVICAL SPINE NONCONTRAST TECHNIQUE: Sagittal T1, T2 and STIR imaging. Axial T2, gradient, and fiesta imaging. CLINICAL INFORMATION: M54.12 - Radiculopathy, cervical region COMPARISON: MRI 2019 FINDINGS: Straightening of the normal cervical lordosis. Mild disc bulging C4-C6. Cord signal is normal. C2-C3: Mild LEFT and no significant RIGHT foraminal narrowing. Mild facet arthropathy. Spinal canal i s patent. C3-C4: Mild disc osteophytic ridging. Mild LEFT and no significant RIGHT foraminal narrowing. Mild fa cet arthropathy. Spinal canal is patent. C4-C5: Disc osteophyte complex with endplate ridging. Mild central canal stenosis. Mild RIGHT greater than LEFT bony foraminal narrowing. Mild facet arthropathy. C5-C6: Disc osteophyte complex with endplate ridging. Mild central canal stenosis. Moderate to severe bilateral bony foraminal narrowing RIGHT greater than LEFT. Mild facet arthropathy. C6-C7: Disc osteophyte complex with endplate ridging. Moderate LEFT and mild to moderate RIGHT bony f oraminal narrowing. C7-T1: Disc osteophytic ridging. Moderate LEFT and no RIGHT foraminal narrowing. Mild facet arthropat hy. Spinal canal is patent. Visualized brain stem structures: Small vessel changes in the randy. Prevertebral soft tissues: Normal. MR/MR cervical spin wo con* [id number] IMPRESSION: 1. Straightening of the normal cervical lordosis with small disc estimate prot rusion C4-C6 with mild central canal stenosis. This is unchanged compared to pr evious. 2. Moderate to severe bony foraminal narrowing RIGHT C5-C6 and LEFT C6-C7 ishan lar in appearance to previous. 3. Moderate LEFT C7-T1 bony foraminal narrowing unchanged. 4. Overall no remarkable changes compared to 2019.
== END 2022-04-12 14:43 | disposition home or self-care (01) ==
LOC: RAD 14:46
PROVIDERS: PCP Family Medicine; Visit Provider Anesthesiology Pain Medicine
DX: M54.12 Radiculopathy, cervical region (principal)
CPT/HCPCS: 72141

== ENCOUNTER → 2022-04-29 08:59 | Outpatient (BNVA) | payer MEDICARE, OTHER, SELFPAY | PROVIDERS: PCP Family Medicine; Visit Provider Anesthesiology Pain Medicine | DX: M50.90 Cervical disc disorder, unspecified, unspecified cervical region (principal); M79.601 Pain in right arm; M79.602 Pain in left arm | CPT/HCPCS: 99214 ==

== ENCOUNTER → 2022-05-17 13:42 | Outpatient (BNVA) | payer MEDICARE, OTHER, SELFPAY | PROVIDERS: PCP Family Medicine; Visit Provider Anesthesiology Pain Medicine | DX: M54.12 Radiculopathy, cervical region (principal) | CPT/HCPCS: 62321; J1100 ==

== ENCOUNTER → 2022-06-11 08:12 | Outpatient (BNVA) | payer MEDICARE, OTHER, SELFPAY | PROVIDERS: PCP Family Medicine; Visit Provider Family Medicine | DX: E78.5 Hyperlipidemia, unspecified (principal); E11.65 Type 2 diabetes mellitus with hyperglycemia; E11.9 Type 2 diabetes mellitus without complications | CPT/HCPCS: 80053; 80061; 83036; 84443 ==

== ENCOUNTER 2022-06-23 06:00 | Outpatient (RCR) | payer MEDICARE, OTHER, SELFPAY | END 2022-06-25 23:59 | disposition home or self-care (01) | LOC: TPT 06:00 | PROVIDERS: PCP Family Medicine; Visit Provider Family Medicine | DX: M50.90 Cervical disc disorder, unspecified, unspecified cervical region (principal) | CPT/HCPCS: 97163 ==

== ENCOUNTER 2022-06-26 06:00 | Outpatient (RCR) | payer MEDICARE, OTHER, SELFPAY | END 2022-07-25 23:59 | disposition home or self-care (01) | LOC: TPT 06:00 | PROVIDERS: PCP Family Medicine; Visit Provider Family Medicine | DX: M50.90 Cervical disc disorder, unspecified, unspecified cervical region (principal) | CPT/HCPCS: 97110; 97140 ==

== ENCOUNTER → 2022-07-05 11:59 | Outpatient (BNVA) | payer MEDICARE, OTHER, SELFPAY | PROVIDERS: PCP Family Medicine; Visit Provider Nurse Practitioner Family | DX: E11.9 Type 2 diabetes mellitus without complications (principal) | CPT/HCPCS: 80053 ==

== ENCOUNTER → 2022-08-10 15:05 | Outpatient (BNVA) | payer MEDICARE, OTHER, SELFPAY | PROVIDERS: PCP Family Medicine; Visit Provider Nurse Practitioner Family | DX: J06.9 Acute upper respiratory infection, unspecified (principal) | CPT/HCPCS: 71046 ==

== ENCOUNTER 2022-08-11 11:57 | Outpatient (RCR) | payer MEDICARE, OTHER, SELFPAY | END 2022-08-11 23:59 | disposition home or self-care (01) | LOC: TPT 11:57 | PROVIDERS: PCP Family Medicine; Visit Provider Family Medicine | DX: M50.90 Cervical disc disorder, unspecified, unspecified cervical region (principal) | CPT/HCPCS: 97110; 97140; 97164 ==

== ENCOUNTER → 2022-10-04 15:27 | Outpatient (BNVA) | payer MEDICARE, OTHER, SELFPAY | PROVIDERS: PCP Family Medicine; Visit Provider Nurse Practitioner Family | DX: E78.5 Hyperlipidemia, unspecified (principal); E11.9 Type 2 diabetes mellitus without complications; I10 Essential (primary) hypertension | CPT/HCPCS: 80053; 80061; 83036 ==

== ENCOUNTER → 2022-11-30 10:12 | Outpatient (BNVA) | payer MEDICARE, OTHER, SELFPAY | PROVIDERS: PCP Family Medicine; Visit Provider Internal Medicine Cardiovascular Disease | DX: I11.9 Hypertensive heart disease without heart failure (principal); E78.5 Hyperlipidemia, unspecified; M50.90 Cervical disc disorder, unspecified, unspecified cervical region; E11.65 Type 2 diabetes mellitus with hyperglycemia; Z79.84 Long term (current) use of oral hypoglycemic drugs; Z87.891 Personal history of nicotine dependence | CPT/HCPCS: 99214 ==

== ENCOUNTER 2023-01-19 09:56 | Outpatient (CLI) | payer MEDICARE, OTHER, SELFPAY ==
--- NOTE | 2023-01-19 10:01 | MM_ITS ---
WS: [email or web address] VIEWS: MLO and CC views both breasts. 3D digital tomosynthesis is also included in this exam. Comparison made with prior exam of 10/31/2013, 11/22/2014, 11/26/2015, 12/10/2016, 01/04/2018, 01/23/2019, 02/29/2020.. Findings: There was no sign of mass, architectural distortion or suspicious calcification in either breast. The re are scattered areas of fibroglandular density Impression: MM/[place] [id number] BI-RADS: 2-Benign finding. FOLLOW-UP: 1 Year Follow-up This mammogram was also analyzed by the Computer Aided Detection System R2 Imag e Safety Net Maker.
== END 2023-01-19 09:57 | disposition home or self-care (01) ==
LOC: RAD 09:56
PROVIDERS: PCP Family Medicine; Visit Provider Family Medicine
DX: Z12.31 Encounter for screening mammogram for malignant neoplasm of breast (principal)
CPT/HCPCS: 77063; 77067

== ENCOUNTER → 2023-02-10 11:16 | Outpatient (BNVA) | payer MEDICARE, OTHER, SELFPAY | PROVIDERS: PCP Family Medicine; Visit Provider Nurse Practitioner Family | DX: E78.5 Hyperlipidemia, unspecified (principal); E11.65 Type 2 diabetes mellitus with hyperglycemia; I10 Essential (primary) hypertension | CPT/HCPCS: 80053; 80061; 83036 ==

== ENCOUNTER 2023-03-16 16:01 | Outpatient (CLI) | payer MEDICARE, OTHER, SELFPAY ==
--- NOTE | 2023-03-16 16:45 | MR_ITS ---
WS: [id number] MRI RIGHT SHOULDER HISTORY: right shoulder pain, decreased ROM COMPARISON: None available. TECHNIQUE: Multiplanar sequences of the shoulder joint are submitted. Severe AC joint arthritis and hypertrophy. There is encroachment upon the supraspinatus muscle and te ndon. 5 mm osteophyte from the distal undersurface of the acromion with mild impingement. There is a small amount of fluid in the subacromial and subdeltoid bursa. No os acromion. Subluxed biceps tendon . Biceps tendon is not present in the bicipital groove. There is significant motion artifact on this examination. Tendinopathy in the distal supraspinatus te ndon. No tear is identified. The remaining tendons as visualized appear intact. Narrowing of the pratibha ohumeral joint. No glenoid tear is identified. IMPRESSION: 1. Quality of this examination is significantly compromised by motion. 2. Severe AC joint arthritis with encroachment upon the supraspinatus muscle and tendon. 3. At least partial subluxation of the biceps tendon. 4. No rotator cuff tear identified. Evaluation of the rotator cuff muscles and labrum limited by giovanna on.
== END 2023-03-16 16:02 | disposition home or self-care (01) ==
LOC: RAD 16:02
PROVIDERS: PCP Family Medicine; Visit Provider Nurse Practitioner Family
DX: M19.011 Primary osteoarthritis, right shoulder (principal)
CPT/HCPCS: 73221

== ENCOUNTER → 2023-04-26 08:35 | Outpatient (BNVA) | payer MEDICARE, OTHER, SELFPAY | PROVIDERS: PCP Nurse Practitioner Family; Referring Provider Nurse Practitioner Family; Visit Provider Internal Medicine | DX: E11.65 Type 2 diabetes mellitus with hyperglycemia (principal); E11.649 Type 2 diabetes mellitus with hypoglycemia without coma; E78.2 Mixed hyperlipidemia; Z79.84 Long term (current) use of oral hypoglycemic drugs | CPT/HCPCS: 99204 ==

== ENCOUNTER → 2023-07-13 15:52 | Outpatient (BNVA) | payer MEDICARE, OTHER, SELFPAY | PROVIDERS: PCP Nurse Practitioner Family; Visit Provider Nurse Practitioner Family | DX: E11.65 Type 2 diabetes mellitus with hyperglycemia (principal); E78.5 Hyperlipidemia, unspecified; I10 Essential (primary) hypertension | CPT/HCPCS: 80053; 80061; 83036; 84443; 85025 ==

== ENCOUNTER → 2023-07-25 09:45 | Outpatient (BNVA) | payer MEDICARE, OTHER, SELFPAY | PROVIDERS: PCP Nurse Practitioner Family; Visit Provider Internal Medicine | DX: E11.65 Type 2 diabetes mellitus with hyperglycemia (principal); E78.2 Mixed hyperlipidemia; E11.649 Type 2 diabetes mellitus with hypoglycemia without coma; Z79.4 Long term (current) use of insulin | CPT/HCPCS: 99214 ==

== ENCOUNTER → 2023-10-25 09:09 | Outpatient (BNVA) | payer MEDICARE, OTHER, SELFPAY | PROVIDERS: PCP Nurse Practitioner Family; Visit Provider Family Medicine | DX: Z20.822 Contact with and (suspected) exposure to COVID-19 (principal) | CPT/HCPCS: 87426 ==

== ENCOUNTER → 2023-11-29 10:56 | Outpatient (BNVA) | payer MEDICARE, OTHER, SELFPAY | PROVIDERS: PCP Nurse Practitioner Family; Visit Provider Internal Medicine Cardiovascular Disease | DX: R06.02 Shortness of breath (principal); I10 Essential (primary) hypertension; E78.5 Hyperlipidemia, unspecified; I34.0 Nonrheumatic mitral (valve) insufficiency; I51.9 Heart disease, unspecified; E11.65 Type 2 diabetes mellitus with hyperglycemia; Z87.891 Personal history of nicotine dependence | CPT/HCPCS: 36415; 80048; 83880; 99214 ==

== ENCOUNTER → 2024-01-03 09:51 | Outpatient (BNVA) | payer MEDICARE, OTHER, SELFPAY | PROVIDERS: PCP Nurse Practitioner Family; Visit Provider Internal Medicine | DX: E11.65 Type 2 diabetes mellitus with hyperglycemia (principal); E03.9 Hypothyroidism, unspecified | CPT/HCPCS: 36415; 80053; 80061; 82044; 83036; 84439; 84443 ==

== ENCOUNTER 2024-01-24 11:03 | Outpatient (CLI) | payer MEDICARE, OTHER, SELFPAY ==
--- NOTE | 2024-01-24 11:11 | MM_ITS ---
WS: [email or web address] BILATERAL 3D TOMOSYNTHESIS DIGITAL SCREENING MAMMOGRAPHY WITH CAD CLINICAL INFORMATION: SCREENING HISTORY: Screening mammogram. No current complaints. COMPARISON: 2022 TECHNIQUE: Bilateral CC and MLO views. FINDINGS: Scattered fibroglandular densities bilaterally. No suspicious focal mass, asymmetry, calcifications, or architectural distortion. No evidence of malignancy. Vascular calcifications. Stable intramammary lymph nodes. MM/MM scr tomosynthesis [id number] IMPRESSION: DENSITY: There are scattered areas of fibroglandular density. BI-RADS: 2 - Benign. FOLLOW UP: 1 Year Follow-up Recommend return to annual screening mammography.
== END 2024-01-24 11:04 | disposition home or self-care (01) ==
LOC: RAD 11:04
PROVIDERS: PCP Nurse Practitioner Family; Visit Provider Nurse Practitioner Family
DX: Z12.31 Encounter for screening mammogram for malignant neoplasm of breast (principal); R92.323 Mammographic fibroglandular density, bilateral breasts; R92.1 Mammographic calcification found on diagnostic imaging of breast
CPT/HCPCS: 77063; 77067

== ENCOUNTER 2024-02-01 13:59 | Outpatient (CLI) | payer MEDICARE, OTHER, SELFPAY ==
--- NOTE | 2024-02-01 14:30 | XR_ITS ---
WS: [email or web address] SCREENING DEXA SCAN [employer] CLINICAL INFORMATION: Z78.0 - Asymptomatic menopausal state COMPARISON: None. FINDINGS: The L1-L4 bone mineral density measures 1.434 g/cm2. This corresponds to a T score score of 2.1 and Z score of 2.7. Left femoral neck bone mineral density measures 1.217 g/cm2. This corresponds to a T score of 1.7 and Z score of 2.7. Right femoral neck bone mineral density measures 1.256 g/cm2. This corresponds to a T score 2.0of and Z score of 3.0. Mean femoral neck bone mineral density measures 1.236 g/cm2. This corresponds to a T score of 1.8 and Z score of 2.9. XR/XR DEXA axial skeleton* [id number] IMPRESSION: Normal bone mineralization. Patient's FRAX calculated 10 year probability for major osteoporotic fracture i s 9.7% and osteoporotic hip fracture is 1.1%.
== END 2024-02-01 14:00 | disposition home or self-care (01) ==
PROVIDERS: PCP Nurse Practitioner Family; Visit Provider Nurse Practitioner Family
DX: Z13.820 Encounter for screening for osteoporosis (principal); Z78.0 Asymptomatic menopausal state
CPT/HCPCS: 77080

== ENCOUNTER → 2024-05-23 12:44 | Outpatient (BNVA) | payer MEDICARE, OTHER, SELFPAY | PROVIDERS: Family Provider Nurse Practitioner Family; PCP Nurse Practitioner Family; Visit Provider Nurse Practitioner Family | DX: R30.0 Dysuria (principal); N39.0 Urinary tract infection, site not specified; R31.9 Hematuria, unspecified | CPT/HCPCS: 81003; 87086 ==

== ENCOUNTER → 2024-07-03 14:23 | Outpatient (BNVA) | payer MEDICARE, OTHER, SELFPAY | PROVIDERS: Family Provider Nurse Practitioner Family; PCP Nurse Practitioner Family; Visit Provider Internal Medicine | DX: E11.65 Type 2 diabetes mellitus with hyperglycemia (principal); E03.9 Hypothyroidism, unspecified | CPT/HCPCS: 80053; 80061; 82043; 83036; 84439; 84443 ==

== ENCOUNTER → 2024-07-10 07:55 | Outpatient (BNVA) | payer MEDICARE, OTHER, SELFPAY | PROVIDERS: PCP Nurse Practitioner Family; Visit Provider Internal Medicine | DX: E11.65 Type 2 diabetes mellitus with hyperglycemia (principal); E78.2 Mixed hyperlipidemia; E16.2 Hypoglycemia, unspecified; E03.9 Hypothyroidism, unspecified; I10 Essential (primary) hypertension | CPT/HCPCS: 99214 ==

== ENCOUNTER → 2025-01-02 10:30 | Outpatient (BNVA) | payer MEDICARE, OTHER, SELFPAY | PROVIDERS: Visit Provider Internal Medicine | DX: I10 Essential (primary) hypertension (principal); E11.65 Type 2 diabetes mellitus with hyperglycemia; E78.2 Mixed hyperlipidemia; E16.2 Hypoglycemia, unspecified; E03.9 Hypothyroidism, unspecified | CPT/HCPCS: 80053; 80061; 82043; 83036; 84439; 84443 ==

== ENCOUNTER → 2025-01-08 08:22 | Outpatient (BNVA) | payer MEDICARE, OTHER, SELFPAY | PROVIDERS: Visit Provider Internal Medicine | DX: E11.649 Type 2 diabetes mellitus with hypoglycemia without coma (principal); E78.2 Mixed hyperlipidemia; E03.9 Hypothyroidism, unspecified; I10 Essential (primary) hypertension; Z79.84 Long term (current) use of oral hypoglycemic drugs | CPT/HCPCS: 99214 ==

== ENCOUNTER 2025-01-24 09:31 | Outpatient (CLI) | payer MEDICARE, OTHER, SELFPAY ==
--- NOTE | 2025-01-24 09:43 | MM_ITS ---
WS: [email or web address] BILATERAL SCREENING DIGITAL TOMOSYNTHESIS MAMMOGRAM WITH CAD HISTORY: SCREENING COMPARISON: 01/24/2024, 01/19/2023 Bilateral CC and MLO views with tomosynthesis and synthetic mammography submitted. Computer aided detection analyzed. Breast composition: There are scattered areas of fibroglandular density. No suspicious masses, microcalcifications or architectural distortion. Benign lymph nodes towards the axillary tails of each breast. MM/MM scr BI tomosynthesis [id number] IMPRESSION: BI-RADS: 2 - Benign. FOLLOW UP: 1 Year Follow-up
== END 2025-01-24 09:32 | disposition home or self-care (01) ==
LOC: RAD 09:33
PROVIDERS: Visit Provider Family Medicine
DX: Z12.31 Encounter for screening mammogram for malignant neoplasm of breast (principal); R92.323 Mammographic fibroglandular density, bilateral breasts; D24.1 Benign neoplasm of right breast; D24.2 Benign neoplasm of left breast
CPT/HCPCS: 77063; 77067